=== PATIENT | male | born 1995 ===

== ENCOUNTER 2020-11-28 14:38 | Inpatient (IN) | payer BC ==
[~2020-11-28] VITALS: Ht 170.2 cm; Wt 106.6 kg
[2020-12-01] MEDS ORDERED: APIX5TAB PO (16:52)
[2020-12-01] MEDS ORDERED: TRAZ-227 PO (16:52)
[2020-12-01] MEDS ORDERED: SERT-414 PO (16:52)
[2020-12-01] MEDS ORDERED: RT-ALBUINH INH (16:52)
[2020-12-01] MEDS ORDERED: MTP25TSR PO (16:52)
[2020-12-01] MEDS ORDERED: DIAZ10TA3 PO (16:52)
[2020-12-01 16:54] VITALS: BP 124/80
[2020-12-01] MEDS ORDERED: guaiFENesin/CODEINE (ROBITUSSIN AC) 10ML UDC PO PRN (17:15)
[2020-12-01] MEDS ORDERED: LOPERAMIDE 2 MG (IMODIUM) TABLET PO PRN (17:15)
[2020-12-01] MEDS ORDERED: LACTULOSE SYRUP 10GM/15ML (ENULOSE) 30ML UDC PO PRN (17:15)
[2020-12-01] MEDS ORDERED: ALPRAZolam 0.25 MG (XANAX) TAB PO PRN (17:15)
[2020-12-01] MEDS ORDERED: CALCIUM CARBONATE 500 MG (TUMS) TAB.CHEW PO PRN (17:15)
[2020-12-01] MEDS ORDERED: ACETAMINOPHEN 500 MG TAB (TYLENOL) PO PRN (17:15)
[2020-12-01] MEDS ORDERED: ONDANSETRON 4 MG (ZOFRAN) ORAL DISSOLVE TAB PO PRN (17:15)
[2020-12-01] MEDS ORDERED: diphenhydrAMINE 25 MG TAB (BENADRYL) PO PRN (17:15)
[2020-12-01] MEDS ORDERED: BISACODYL 10 MG SUPP (DULCOLAX) PR PRN (17:15)
[2020-12-01] MEDS ORDERED: FLEET ENEMA ADULT 1 EA BTL PR PRN (17:15)
[2020-12-01] MEDS ORDERED: NALOXONE 0.4 MG/ML 1 ML (NARCAN) VIAL IV PRN (17:15)
[2020-12-01] MEDS ORDERED: MELATONIN 3 MG TABLET PO PRN (17:15)
[2020-12-01] MEDS ORDERED: DOCUSATE SODIUM 100 MG (COLACE) CAP PO PRN (17:15)
[2020-12-01] MEDS ORDERED: ACETAMINOPHEN 325 MG TABLET PO PRN (17:30)
[2020-12-01] MEDS ORDERED: RT-ALBUTEROL SULF 2.5 MG/3 ML PRE-MIX VIAL INH PRN (18:00)
--- NOTE | 2020-12-01 18:03 | PM&R Post Admission Assessment ---
PM&R HP Date of Visit: Dec 01, 2020 Time of Visit: 18:15 History of Present Illness Chief complaint: Post Covid 19 pneumonia syndrome with severe debility and hypoxia History of present illness: This is a 25-year-old male who is from [place] who transferred to inpatient rehab to recover and ultimately return to independent living and prior level of functioning following a long hospital stay after ada COVID-19 pneumonia with subsequent admission to [place] but then transferred to [facility] in [place] for ECMO. It was a successful treatment he did require a tracheotomy. He is now here for aggressive therapy in order to regain function and return home with his fiance who is with their fifth child. She is due in 2 weeks. He does have a right lower extremity DVT he is on oral anticoagulation. He works for [employer] for the last 1 year. CC: Post ECMO Rehab following COVID-19 Sepsis Pneumonia HPI: 25yo M presents to [facility] for post ECMO rehab following COVID-19 sepsis pneumonia with pt/family goal of returning to previous state. Prior to hospitalization the patient was living with his in [place], [place]. He was reportedly independent with ADLs and functionally mobile without an AD. 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 On 10/03/20, he reports a loss of taste, smell, fever, and chills for over 24 hours before visiting ER [facility]. There he had a positive covid test and he was placed on ZITHROMAX (Azithromycin) and Decadron (Dexamethasone). 7 Days later, on 10/09/20, he reports cough, congestion, SOB, headache, fatigue, and intermittent fever. 88% O2 was then maintained at 94-95% on 3L NC. Chest xray showed multilobular pneumonia and was given Rocephin (ceftriaxone). ER physicians recommended admission, but patient decided to go home instead and was discharged on Omnicef (cefdinir), Ivermectin, and supplemental home oxygen. On 10/10, he was admitted to [facility] for 7 days and was intubated and right PNX placed chest tube. 10/17, Pt sent to [facility] for ECMO, but due to insufficient resources was transferred to [facility] ECMO just [address] De La Torre. Pt states after being in a coma for about a month, they now present to the [facility] rehab unit for recovery. 12/01, pt reports cough, weight gain, blurry vision, and chest numbness. Denies any fever, vomiting, diarrhea, chest pain, wheezes, or SOB. Pt pending further evaluation tomorrow morning. 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 currently FH: Mom (Glaucoma); Father (none); Sisters (None) ROS: Constitutional: No chills, No dizziness, No fever; weight gain (Since waking up), weight loss (50lbs during 1 month coma) EENTM: vision loss; No ear pain, No eye pain Respiratory: cough; No hemoptysis; phlegm; No short of breath, No wheezing Cardiovascular: No chest pain, No edema, No syncope Gastrointestinal: No abdominal pain, No diarrhea, No hematemesis, No loss of appetite, No nausea, No vomiting Genitourinary: No dysuria, No frequency, No incontinence Musculoskeletal: No back pain, No muscle pain, No neck pain Skin: No change in color, No lesions, No rash Psychiatric/Neurological: Denies Headache; Numbness (Chest); Denies Tingling Exam: General Appearance: No Apparent Distress, WD/WN; No Obese Eyes: Bilateral Eye Normal Inspection, Bilateral Eye PERRL, Bilateral Eye EOMI HEENT: PERRL/EOMI, Pharynx Normal, Moist Mucous Membranes; No Photophobia, No Scleral Icterus (L), No Scleral Icterus (R) Neck: Non Tender, Supple Respiratory: Chest Non Tender, No Accessory Muscle Use, No Respiratory Distress, Decreased Breath Sounds (Bilateral lower lobes) Cardiovascular: Tachycardia Back: Normal Inspection, No CVA Tenderness, No Vertebral Tenderness Extremity: Normal Capillary Refill, Normal Inspection, Normal Range of Motion, Non Tender, No Calf Tenderness, No Pedal Edema Neurologic/Psychiatric: Alert, Oriented x3, No Motor/Sensory Deficits, Normal Mood/Affect, manager general II-XII Norm as Tested Skin: Normal Color, Warm/Dry Labs/Imaging: Vital Signs 12/01/20 12/01/20 16:54 19:08 Temp 37.0 Pulse 121 Resp 20 B/P (MAP) 124/80 (95) Pulse Ox 95 O2 Delivery Trach Collar O2 Flow Rate 6.00 FiO2 28 Assessment: Status Post ECMO Critical Illness Myopathy Anemia Anxiety COVID-19 (10/04/2020) -ARDS -Sepsis -Pneumonia DVT Hypoxia Insomnia Leukocytosis Tachycardia Thrombocytopenia Morbid Obesity GERD (previous decadron use, Famotidine ppx used) Plan: ABG for Hypoxia CBC/CMP for previous anemia, leukocytosis, and thrombocytopenia Repeat Chest X-ray for possible residual pneumonia Melatonin 5mg at bedtime for Insomnia Sertraline for Anxiety Cardiology consult for tachycardia -Metoprolol Coag studies check for D-dimer levels due to previous DVT -Eliquis DVT ppx -Bilateral Venous Doppler Study Possible nutrition consult due to rapid weight gain NAN WASSERMAN DO 12/02/20 0603: Supervisory-Addendum Brief Verification & Attestation Participated in pt care: history, MDM, physical Personally performed: exam, history, MDM, supervision of care Care discussed with: Medical Student Procedures: n/a Results interpretation: Verified all documentation Verification and Attestation of Medical Student E/M Service A medical student performed and documented this service in my presence. I reviewed and verified all information documented by the medical student and made modifications to such information, when appropriate. I personally performed the physical exam and medical decision making. Nan Wasserman Dec 02, 2020,06:02 HUMBLE IGLESIAS Dec 01, 2020 20:47 NAN WASSERMAN DO Patient was admitted to the ARU during this COVID-19 emergency. The ARU is the best and most appropriate post-acute care setting for this patient at this current time. Patient meets IRF admission criteria, however will be unable to tolerate 3 hours of therapy/5 days per week. This patients individualized intensive rehabilitation plan is to receive 2 hours of therapy per day, by receiving 1 hour of PT and 1 hour of OT 5 out of 7 days per the patients week. As an interdisciplinary team, we will discuss this patients ability to tolerate an increase in the intensity of therapy to be provided throughout the patients stay Past Xiohiyb-[id number]-Venzdj Hx Past Med/Social Hx: Reviewed Nursing Past Med/Soc Hx, Reviewed and Corrections made Patient Social History Marrital Status: cohabiting Employed/Student: employed Alcohol Use: Denies Use Smoking Status: Never a Smoker Past Medical History Tracheotomy Respiratory: Pneumonia COVID-19 pneumonia with ECMO Cardiac: Deep Vein Thrombosis (Right lower extremity) Psychosocial: Anxiety PM&R Allergy/Meds/Data Review Allergies Coded Allergies: No Known Drug Allergies (Unverified , 12/01/20) Home Medications Scheduled Apixaban (Eliquis), 5 MG PO BID, (Reported) Diazepam (Diazepam), 10 MG PO HS, (Reported) Metoprolol Succinate (Metoprolol Succinate), 25 MG PO DAILY, (Reported) Sertraline HCl (Sertraline HCl), 100 MG PO DAILY, (Reported) Trazodone HCl (Trazodone HCl), 100 MG PO HS, (Reported) Scheduled PRN Albuterol Sulfate (Ventolin Hfa), 2 PUFF INH Q4H PRN for WHEEZING, (Reported) Current Medications Current Medications Reviewed Review of Systems Constitutional: see HPI, malaise, weakness EENTM: no symptoms reported Respiratory: dyspnea on exertion Cardiovascular: no symptoms reported Gastrointestinal: no symptoms reported Genitourinary: no symptoms reported Musculoskeletal: no symptoms reported Skin: no symptoms reported Psychiatric/Neurological: Anxiety, Depressed All Other Systems Reviewed Negative Unless Noted: Yes Physical Exam Physical Exam Vital Signs Vital Signs - First Documented 12/01/20 12/01/20 16:54 17:30 Temp 37.0 Pulse 121 Resp 20 B/P (MAP) 124/80 (95) Pulse Ox 96 O2 Delivery Trach Collar O2 Flow Rate 6.00 28.00 FiO2 28 Capillary Refill : Height, Weight, BMI Height: '" Weight: lbs. oz. kg; 35.00 BMI Method: General Appearance: No Apparent Distress, WD/WN, Anxious, Chronically ill, Obese Eyes: Bilateral Eye Normal Inspection, Bilateral Eye PERRL HEENT: PERRL/EOMI, Normal ENT Inspection, Pharynx Normal Neck: Full Range of Motion, Normal Inspection, Non Tender, Supple, Carotid Bruit Respiratory: Chest Non Tender, Lungs Clear, Normal Breath Sounds, No Accessory Muscle Use, No Respiratory Distress Cardiovascular: Regular Rate, Rhythm, No Edema, No Gallop, No JVD, No Murmur, Normal Peripheral Pulses Gastrointestinal: Normal Bowel Sounds, No Organomegaly, No Pulsatile Mass, Non Tender, Soft Back: Normal Inspection, No CVA Tenderness, No Vertebral Tenderness Extremity: Normal Capillary Refill, Normal Inspection, Normal Range of Motion, Non Tender, No Calf Tenderness, No Pedal Edema Neurologic/Psychiatric: Alert, Oriented x3, No Motor/Sensory Deficits, Normal Mood/Affect, Motor Weakness (Generalized) Skin: Normal Color, Warm/Dry Lymphatic: No Adenopathy PM&R Medical Assessment & Plan REHAB/MEDICAL ASSESSMENT AND PLAN: REHAB IMPAIRMENT GROUP: COVID-19 pneumonia ETIOLOGIC DIAGNOSIS: COVID-19 pneumonia The comorbidities that impact the patients function and/or functional outcome by: Severe hypoxia, trach in place, severe debility with muscle weakness REHAB PLAN: The patient is being admitted to our comprehensive inpatient rehabilitation facility and can tolerate the intensity of service consisting of at least: 180 minutes of therapy a day, 5 out of 7 days a week Rehab treatment will consist of: Intensive PT and OT will be focused on ambulatory skills along with assistive devices in addition to increasing independence in ADLs to return to independent living The patient/family has a good understanding of our discharge process and will benefit from an interdisciplinary inpatient rehabilitation program. The patient has potential to make improvement and is in need of at least two of the following multidisciplinary therapies including but not limited to physical, occupational, speech, and prosthetics and orthotics. Additionally the patient will need services from respiratory, nutritional services, wound care, psychology, etc. (Customize this to each patient). Given the patients complex condition and risk of further medical complications, rehabilitation services cannot be safely or effectively provided at a lower level of care such as a care home facility. BARRIERS TO DISCHARGE: Severe debility with hypoxia with exertion ESTIMATED LOS: 21 days DISPOSITION: Home RELEVANT CHANGES SINCE PREADMISSION SCREENING: I have compared the patients medical and functional status at the time of the preadmission screening and there are: No changes PROGNOSIS: Good REHABILITATION GOALS: 1. Intensive PT and OT will be focused on ambulatory skills along with assistive devices in addition to increasing independence in ADLs to return to independent living All the above goals were reviewed with the patient and he/she is in agreement. By signing this document, I acknowledge that I have personally performed a full physical examination on this patient within 24 hours of [facility] and have determined the patient to be able to tolerate the above course of treatment at an intensive level for a reasonable period of time. I will be completing a detailed individualized Plan of Care for this patient by day #4 of the patients stay based upon the Preadmission Screen, the Post-Admission Evaluation, and the therapy evaluations. Admission Dx/Comorbidities: (1) COVID-19 ICD Codes: U07.1 - COVID-19 Assessment/Plan Assessment and Plan Assess & Plan/Chief Complaint Assessment: COVID-19 pneumonia syndrome with severe debility and muscle weakness Tracheostomy in place Obesity Anxiety Severe hypoxia Plan: Aggressive PT and OT Oxygen supplementation Trach care Monitor closely NAN WASSERMAN DO Dec 01, 2020 18:03
[2020-12-01] MEDS: DOCUSATE SODIUM 100 MG (COLACE) CAP PO SCH (19:31)
[2020-12-01] MEDS: polyethylene glycoL POWDER 17 GM (MIRALAX) PACK PO SCH (19:31)
[2020-12-01] MEDS: SENNA W/DOCUSATE (SENOKOT S) TABLET PO SCH (19:32)
[2020-12-01 20:00] VITALS: BP 127/81
--- NOTE | 2020-12-01 20:47 | Progress Note ---
[facility] 12/01/202046: Progress Note CC: Post ECMO Rehab following COVID-19 Sepsis Pneumonia HPI: 25yo M presents to [facility] for post ECMO rehab following COVID-19 sepsis pneumonia with pt/family goal of returning to previous state. Prior to hospitalization the patient was living with his in [place], [place]. He was reportedly independent with ADLs and functionally mobile without an AD. 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 On 10/03/20, he reports a loss of taste, smell, fever, and chills for over 24 hours before visiting ER [facility]. There he had a positive covid test and he was placed on ZITHROMAX (Azithromycin) and Decadron (Dexamethasone). 7 Days later, on 10/09/20, he reports cough, congestion, SOB, headache, fatigue, and intermittent fever. 88% O2 was then maintained at 94-95% on 3L NC. Chest xray showed multilobular pneumonia and was given Rocephin (ceftriaxone). ER physicians recommended admission, but patient decided to go home instead and was discharged on Omnicef (cefdinir), Ivermectin, and supplemental home oxygen. On 10/10, he was admitted to [facility] for 7 days and was intubated and right PNX placed chest tube. 10/17, Pt sent to [facility] for ECMO, but due to insufficient resources was transferred to [facility] ECMO just [address] De La Torre. Pt states after being in a coma for about a month, they now present to the [facility] rehab unit for recovery. 12/01, pt reports cough, weight gain, blurry vision, and chest numbness. Denies any fever, vomiting, diarrhea, chest pain, wheezes, or SOB. Pt pending further evaluation tomorrow morning. 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 with currently FH: Mom (Glaucoma); Father (none); Sisters (None) ROS: Constitutional: No chills, No dizziness, No fever; weight gain (Since waking u p), weight loss (50lbs during 1 month coma) EENTM: vision loss; No ear pain, No eye pain Respiratory: cough; No hemoptysis; phlegm; No short of breath, No wheezing Cardiovascular: No chest pain, No edema, No syncope Gastrointestinal: No abdominal pain, No diarrhea, No hematemesis, No loss of appetite, No nausea, No vomiting Genitourinary: No dysuria, No frequency, No incontinence Musculoskeletal: No back pain, No muscle pain, No neck pain Skin: No change in color, No lesions, No rash Psychiatric/Neurological: Denies Headache; Numbness (Chest); Denies Tingling Exam: General Appearance: No Apparent Distress, WD/WN; No Obese Eyes: Bilateral Eye Normal Inspection, Bilateral Eye PERRL, Bilateral Eye EOMI HEENT: PERRL/EOMI, Pharynx Normal, Moist Mucous Membranes; No Photophobia, No Scleral Icterus (L), No Scleral Icterus (R) Neck: Non Tender, Supple Respiratory: Chest Non Tender, No Accessory Muscle Use, No Respiratory Distress, Decreased Breath Sounds (Bilateral lower lobes) Cardiovascular: Tachycardia Back: Normal Inspection, No CVA Tenderness, No Vertebral Tenderness Extremity: Normal Capillary Refill, Normal Inspection, Normal Range of Motion, Non Tender, No Calf Tenderness, No Pedal Edema Neurologic/Psychiatric: Alert, Oriented x3, No Motor/Sensory Deficits, Normal Mood/Affect, extension course counselor II-XII Norm as Tested Skin: Normal Color, Warm/Dry Labs/Imaging: Vital Signs 12/01/20 12/01/20 16:54 19:08 Temp 37.0 Pulse 121 Resp 20 B/P (MAP) 124/80 (95) Pulse Ox 95 O2 Delivery Trach Collar O2 Flow Rate 6.00 FiO2 28 Assessment: Status Post ECMO Critical Illness Myopathy Anemia Anxiety COVID-19 (10/04/2020) -ARDS -Sepsis -Pneumonia DVT Hypoxia Insomnia Leukocytosis Tachycardia Thrombocytopenia Morbid Obesity GERD (previous decadron use, Famotidine ppx used) Plan: ABG for Hypoxia CBC/CMP for previous anemia, leukocytosis, and thrombocytopenia Repeat Chest X-ray for possible residual pneumonia Melatonin 5mg at bedtime for Insomnia Sertraline for Anxiety Cardiology consult for tachycardia -Metoprolol Coag studies check for D-dimer levels due to previous DVT -Eliquis DVT ppx -Bilateral Venous Doppler Study Possible nutrition consult due to rapid weight gain NAN WASSERMAN DO 12/02/20 0603: Supervisory-Addendum Brief Verification & Attestation Participated in pt care: history, MDM, physical Personally performed: exam, history, MDM, supervision of care Care discussed with: Medical Student Procedures: n/a Results interpretation: Verified all documentation Verification and Attestation of Medical Student E/M Service A medical student performed and documented this service in my presence. I reviewed and verified all information documented by the medical student and made modifications to such information, when appropriate. I personally performed the physical exam and medical decision making. Nan Wasserman, Dec 02, 2020,06:02 HUMBLE IGLESIAS Dec 01, 2020 20:47 NAN WASSERMAN DO Dec 02, 2020 06:03
[2020-12-01] MEDS ORDERED: NON-FORMULARY MEDICATION 1 EA EA (Diazepam 10 MG) PO SCH (21:00)
[2020-12-01] MEDS: DIAZEPAM 5 MG (VALIUM) TABLET PO SCH (21:03)
[2020-12-01] MEDS: traZODone 100 MG (DESYREL) TAB PO SCH (21:03)
[2020-12-01] MEDS: APIXABAN 5 MG (ELIQUIS) TABLET PO SCH (21:03)
[2020-12-01 21:24] VITALS: BP 127/81
[2020-12-02 06:36] LABS: BASOPHILS % (AUTO) 0 % (0-10); EOSINOPHILS # (AUTO) 0.1 10^3/uL (0.0-0.3); EOSINOPHILS % (AUTO) 1 % (0-10); HEMATOCRIT 32 % (40-54); LYMPHOCYTES # (AUTO) 2.1 10^3/uL (1.0-4.0); LYMPHOCYTES % (AUTO) 25 % (12-44); MEAN CORPUSCULAR HEMOGLOBIN 30 pg (25-34); MEAN CORPUSCULAR HGB CONC 31 g/dL (32-36); MEAN CORPUSCULAR VOLUME 97 fL (80-99); MEAN PLATELET VOLUME 10.3 fL (9.0-12.2); MONOCYTES # (AUTO) 0.5 10^3/uL (0.0-1.0); MONOCYTES % (AUTO) 6 % (0-12); NEUTROPHILS # (AUTO) 5.6 10^3/uL (1.8-7.8); NEUTROPHILS % (AUTO) 67 % (42-75); PLATELET COUNT 410 10^3/uL (130-400); WHITE BLOOD COUNT 8.4 10^3/uL (4.3-11.0)
[2020-12-02 06:53] LABS: ALBUMIN 3.7 GM/DL (3.2-4.5)
[2020-12-02 06:55] LABS: CALCIUM 9.3 MG/DL (8.5-10.1)
[2020-12-02 06:56] LABS: TOTAL PROTEIN 6.4 GM/DL (6.4-8.2)
[2020-12-02 06:58] LABS: BILIRUBIN,TOTAL 0.4 MG/DL (0.1-1.0)
[2020-12-02 06:59] LABS: CREATININE SERUM 0.68 MG/DL (0.60-1.30)
[2020-12-02 08:00] VITALS: BP 139/90
--- NOTE | 2020-12-02 08:46 | Physical Therapy Evaluation ---
PT Evaluation-General Medical Diagnosis Admission Date Dec 01, 2020 at 16:40 Medical Diagnosis: Critical Illness Myopathy Onset Date: Oct 09, 2020 Therapy Diagnosis Therapy Diagnosis: Gait deficit, strength deficit Precautions Precautions/Isolations: Fall Prevention, Standard Precautions Referral Physician: Dr. Calderon Reason for Referral: Evaluation/Treatment Medical History Current History Patient post COVID with significant decline in function and strength, tolerance to activity. Reviewed History: Yes Social History Home: Single Level Current Living Status: Significant Other Entry Into Home: Stairs With Railing PT Steps Into Home: 4 PT Steps Inside Home: 0 Prior Prior Level of Function SCALE: Activities may be completed with or without assistive devices. 4-Klwgvzowft-ifqgirk completes the activity by him/herself with no assistance from a helper. 5-Set-up or Clean-up Assistance-helper sets up or cleans up; patient completes activity. [place] assists only prior to or following the activity. 4-Supervision or Touching Assistance-helper provides verbal cues and/or touching/steadying and/or contact guard assistance as patient completes activity. Assistance may be provided throughout the activity or intermittently. 3-Partial/Moderate Assistance-helper does LESS THAN HALF the effort. [place] lifts, holds or supports trunk or limbs, but provides less than half the effort. 2-Substantial/Maximal Assistance-helper does MORE THAN HALF the effort. [place] lifts or holds trunk or limbs and provides more than half the effort. 6-Iouenahpu-jkkklo does ALL the effort. Patient does none of the effort to complete the activity. Or, the assistance of 2 or more helpers is required for the patient to complete the activity. If activity was not attempted, code reason: 7-Patient Refused. 9-Not Applicable-not attempted and the patient did not perform the activity before the current illness, exacerbation or injury. 10-Not Attempted due to Environmental Limitations-(lack of equipment, weather restraints, etc.). 88-Not Attempted due to Medical Conditions or Safety Concerns. Bed Mobility: 6 Transfers (B,C,W/C): 6 Gait: 6 Stairs: 6 Wheelchair Mobility: 6 Indoor Mobility (Ambulation): Independent Stairs: Independent Prior Devices Use: None PT Evaluation-Current Subjective Patient sitting upright in bed upon PT arrival, agreeable to treatment. Patient rates current pain at 2/10 in his neck due to soreness. Reports he has been in a coma for a month and a half and feels like his muscles are very weak and he gets tired easily. Reports he has some anxiety as well and that makes walking and moving around more difficult. Reports he ambulated one time at [facility], "with a chair that had a seat behind it" ~ 60 feet. Patients goal is to return home with his Fiance as she is . Patient is highly motivated. Objective Patient Orientation: Person, Place, Time, Situation Attachments: Oxygen Trach mask with 4 L O2 at 28% Integumentary/Posture Integumentary No noticeable skin tears or wounds. Please see nurses notes for further details Sensory Vision: Functional Sensation Right Lower Extremit: Intact Sensation Left Lower Extremity: Intact Transfers Roll Left & Right (QC): 5 Sit to Lying (QC): 5 Lying to Sitting/Side of Bed(Q: 5 Sit to Stand (QC): 4 Chair/Tmh-bs-Pyqgq Xfer(QC): 4 Toilet Transfer (QC): 4 Car Transfer (QC): 4 Gait Does the Patient Walk?: Yes Mode of Locomotion: Walk Anticipated Mode of Locomotion: Walk Walk 10 feet (QC): 4 Walk 50 ft with 2 Turns(QC): 4 Walk 150 ft (QC): 1 Walking 10ft/uneven surface-QC: 4 Distance: 40 feet x 2 Gait Assistive Device: FWW Comments/Gait Description Patient ambulates with narrow ARTEMIO, shortened stride length bilaterally and tends to keep his posture very stiff. Demonstrates little to no trunk movement. Wheelchair Training Does the Pt Use a Wheelchair?: No Distance: N/A Wheel 50 ft with 2 turns (QC): 9 Wheel 150 ft (QC): 9 Type of Wheelchair: N/A Stairs #of Steps: 0 1 Step (curb) (QC): 88 4 Steps (QC): 88 12 Steps (QC): 8 Balance Sitting Static: Normal Sitting Dynamic: Good Standing Static: Fair Standing Dynamic: Fair Picking up an Object (QC): 4 Treatment Therapeutic exercise with monitoring of O2 without trach mask, Gait training, Functional activity Assessment/Needs Patient tolerated treatment well. Demonstrates significant strength deficit in bilateral LEs and core. Patient performs all observed bed mobility with SBA for trach and tubing. Fatigues quickly throughout treatment, O2 monitored continuously as O2 sats decline with activity and Heart rate increases to 138 bpm during therapeutic exercise despite frequent rest breaks. Rehab Potential: Good Equipment Needs FWW rental for short term use PT Short Term Goals Short Term Goals Time Frame: Dec 09, 2020 Chair/lie-pc-eogut transfer: 5 Toilet transfer: 5 Car transfer: 5 Walk 10 feet: 5 Walk 50 feet with two turns: 5 Walk 150 feet: 5 Walking 10ft on uneven surface: 5 1 step (curb): 5 4 steps: 5 12 steps: 5 Picking up objects: 5 Does pt use a wc or scooter: No Wheel 50ft w/2 turns: 9 Wheel 150 feet: 9 Type: N/A PT Group Home Goals Group Home Goals PT Group Home Goals Time Frame: Dec 23, 2020 Roll Left & Right (QC): 6 Sit to Lying (QC): 6 Lying-Sitting on Side/Bed(QC): 6 Sit to Stand (QC): 6 Chair/Lcg-vo-Udpxk Xfer(QC): 6 Toilet Transfer (QC): 6 Car Transfer (QC): 6 Does the Patient Walk: Yes Walk 10 feet (QC): 6 Walk 50ft with 2 Turns (QC): 6 Walk 150 ft (QC): 6 Walking 10ft on Uneven Surface: 6 1 Step (curb) (QC): 6 4 Steps (QC): 6 12 Steps (QC): 6 Picking up an Object (QC): 6 Does the Pt use WC or Scooter?: No Wheel 50 feet with 2 turns (QC: 9 Type: N/A Wheel 150 feet: 9 Type: N/A PT Plan Problem List Problem List: Activity Tolerance, Functional Strength, Safety, Balance, Gait, Transfer Treatment/Plan Treatment Plan: Continue Plan of Care Treatment Plan: Bed Mobility, Concurrent Therapy, Education, Functional Activity Trudy, Functional Strength, Group Therapy, Gait, Safety, Therapeutic Exercise, Transfers Treatment Duration: Jan 15, 2021 Frequency: At least 5 of 7 days/Wk (IRF) Estimated Hrs Per Day: 1.5 hours per day Patient and/or Family Agrees t: Yes Safety Risks/Education Patient Education: Gait Training, Reviewed Precautions, Safety Issues Teaching Recipient: Patient Teaching Methods: Demonstration, Discussion Response to Teaching: Verbalize Understanding, Return Demonstration Time/GCodes Time In: 0800 Time Out: 900 Total Billed Treatment Time: 60 Total Billed Treatment Visit, Jose Christine Ex, FA TOCCI, JOHN A PT Dec 02, 2020 08:46
[2020-12-02] MEDS: DOCUSATE SODIUM 100 MG (COLACE) CAP PO SCH ×2 (09:14→20:04)
[2020-12-02] MEDS: SENNA W/DOCUSATE (SENOKOT S) TABLET PO SCH ×2 (09:14→20:05)
[2020-12-02] MEDS: polyethylene glycoL POWDER 17 GM (MIRALAX) PACK PO SCH ×2 (09:14→20:05)
[2020-12-02] MEDS: APIXABAN 5 MG (ELIQUIS) TABLET PO SCH ×2 (09:23→22:46)
[2020-12-02] MEDS: SERTRALINE 100 MG (ZOLOFT) TAB PO SCH (09:23)
--- NOTE | 2020-12-02 09:55 | PM&R Progress Note ---
Subjective HPI/CC On Admission Date Seen by Provider: Dec 02, 2020 Time Seen by Provider: 10:00 Subjective/Events-last exam 12/02/2020: Pt doing really well Taking a shower HR remains tachycardic so Metoprolol 12.5 BID will be started Denies any other new issues Fianc at the bedside Review of Systems General: Fatigue, Malaise Pulmonary: Dyspnea Objective Exam Vital Signs Vital Signs Date Time Temp Pulse Resp B/P (MAP) Pulse Ox O2 Delivery O2 Flow Rate FiO2 12/02/20 21:13 96 Trach Collar 6.00 28 12/02/20 20:00 36.8 124 20 119/76 (90) Capillary Refill : General Appearance: No Apparent Distress, WD/WN, Anxious, Chronically ill, Obese HEENT: PERRL/EOMI, Normal ENT Inspection, Pharynx Normal Neck: Full Range of Motion, Normal Inspection, Non Tender, Supple, Carotid Bruit Respiratory: Chest Non Tender, Lungs Clear, Normal Breath Sounds, No Accessory Muscle Use, No Respiratory Distress Cardiovascular: Regular Rate, Rhythm, No Edema, No Gallop, No JVD, No Murmur, Normal Peripheral Pulses Gastrointestinal: Normal Bowel Sounds, No Organomegaly, No Pulsatile Mass, Non Tender, Soft Back: Normal Inspection, No CVA Tenderness, No Vertebral Tenderness Extremity: Normal Capillary Refill, Normal Inspection, Normal Range of Motion, Non Tender, No Calf Tenderness, No Pedal Edema Neurologic/Psychiatric: Alert, Oriented x3, No Motor/Sensory Deficits, Normal Mood/Affect, Motor Weakness (Generalized) Skin: Normal Color, Warm/Dry Lymphatic: No Adenopathy Results/Procedures Lab Laboratory Tests 12/02/20 06:25 Patient resulted labs reviewed. FIM Transfers Therapy Code Descriptions/Definitions Functional [place] Measure: 0=Not Assessed/NA 4=Minimal Assistance 1=Total Assistance 5=Supervision or Setup 2=Maximal Assistance 6=Modified [place] 3=Moderate Assistance 7=Complete IndependenceSCALE: Activities may be completed with or without assistive devices. 9-Cjrkrenjeu-cbwtbyq completes the activity by him/herself with no assistance from a helper. 5-Set-up or Clean-up Assistance-helper sets up or cleans up; patient completes activity. [place] assists only prior to or following the activity. 4-Supervision or Touching Assistance-helper provides verbal cues and/or touching/steadying and/or contact guard assistance as patient completes activity. Assistance may be provided throughout the activity or intermittently. 3-Partial/Moderate Assistance-helper does LESS THAN HALF the effort. [place] lifts, holds or supports trunk or limbs, but provides less than half the effort. 2-Substantial/Maximal Assistance-helper does MORE THAN HALF the effort. [place] lifts or holds trunk or limbs and provides more than half the effort. 9-Bfrqbnvrh-upvoqj does ALL the effort. Patient does none of the effort to complete the activity. Or, the assistance of 2 or more helpers is required for the patient to complete the activity. If activity was not attempted, code reason: 7-Patient Refused. 9-Not Applicable-not attempted and the patient did not perform the activity before the current illness, exacerbation or injury. 10-Not Attempted due to Environmental Limitations-(lack of equipment, weather restraints, etc.). 88-Not Attempted due to Medical Conditions or Safety Concerns. Roll Left to Right (QC): 5 Sit to Lying (QC): 5 Sit to Stand (QC): 4 Chair/Suz-io-Tonqn Xfer(QC): 4 Car Transfer (QC): 4 Gait Training Does the Patient Walk?: Yes Walk 10 feet (QC): 4 Walk 50 ft with 2 Turns(QC): 4 Walk 150 ft (QC): 1 Walking 10ft/uneven surface-QC: 4 Gait Assistive Device: FWW Wheelchair Training Does the Pt Use a Wheelchair?: No Distance: N/A Wheel 50 ft with 2 turns (QC): 9 Wheel 150 ft (QC): 9 Type of Wheelchair: N/A Stair Training #of Steps: 0 1 Step (curb) (QC): 88 4 Steps (QC): 88 12 Steps (QC): 8 Balance Picking up an Object (QC): 4 Assessment/Plan Assessment and Plan Assess & Plan/Chief Complaint Assessment: COVID-19 pneumonia syndrome with severe debility and muscle weakness Tracheostomy in place Obesity Anxiety Severe hypoxia Anemia hemoglobin of 10 Plan: Aggressive PT and OT Oxygen supplementation Trach care Monitor closely 12/02/2020: Continue supportive care Oxygen wean Improved status (1) COVID-19 MYRNA WASSERMAN DO Dec 02, 2020 09:55
[2020-12-02 11:07] VITALS: BP 119/76
[2020-12-02] MEDS: meTOprolol TARTRATE 25 MG (LOPRESSOR) TABLET PO SCH ×2 (11:07→22:46)
--- NOTE | 2020-12-02 11:11 | Progress Note ---
HUMBLE IGLESIAS 12/02/20 1111: Progress Note 25yo M is on his 2nd day stay in rehab s/p ECMO due to covid sepsis pna. Pt reports some neck pain and bloating. Denies chest pain, fever, vomiting, cough, or diarrhea. PT/OT reports that pt was able to walk from his bed to the door and back 2x. Plan to continue PT/OT for approximately 2 weeks and increase me toprolol to control tachycardia. NAN WASSERMAN DO 12/03/20 0600: Supervisory-Addendum Brief Verification & Attestation Participated in pt care: history, MDM, physical Personally performed: exam, history, MDM, supervision of care Care discussed with: Medical Student Procedures: n/a Results interpretation: Verified all documentation Verification and Attestation of Medical Student E/M Service A medical student performed and documented this service in my presence. I r eviewed and verified all information documented by the medical student and made modifications to such information, when appropriate. I personally performed the physical exam and medical decision making. Nan Wasserman, Dec 03, 2020,06:00 HUMBLE IGLESIAS Dec 02, 2020 11:11 NAN WASSERMAN DO Dec 03, 2020 06:00
--- NOTE | 2020-12-02 11:36 | Occupational Therapy Eval ---
OT Evaluation-General/PLF Medical Diagnosis Admission Date Dec 01, 2020 at 16:40 Medical Diagnosis: Critical Illness Myopathy Onset Date: Oct 09, 2020 Therapy Diagnosis Therapy Diagnosis: decreased ADL Status Precautions Precautions/Isolations: Fall Prevention, Standard Precautions Referral Physician: Dr. Calderon Referral Reason: Evaluation/Treatment Medical History Additional Medical History achilles tendon repair, anxiety Current History 10/04/20 diagnosed positive for COVID 19. 10/10 admit to [facility], intubated, and R PNX placed chest tube. 10/[address] [facility] for ECMO, transferred to [facility] ECMO 16 hours later due to insufficient resources. 12/[address] [facility] for continued medication management and skilled th erapies. Social History Home: Single Level Current Living Status: Significant Other Entry Into Home: Stairs With Railing Steps Into Home: 4 Steps Inside Home: 0 ADL-Prior Level of Function SCALE: Activities may be completed with or without assistive devices. 7-Cpxdtybmsl-athcbjk completes the activity by him/herself with no assistance from a helper. 5-Set-up or Clean-up Assistance-helper sets up or cleans up; patient completes activity. [place] assists only prior to or following the activity. 4-Supervision or Touching Assistance-helper provides verbal cues and/or touching/steadying and/or contact guard assistance as patient completes activity. Assistance may be provided throughout the activity or intermittently. 3-Partial/Moderate Assistance-helper does LESS THAN HALF the effort. [place] lifts, holds or supports trunk or limbs, but provides less than half the effort. 2-Substantial/Maximal Assistance-helper does MORE THAN HALF the effort. [place] lifts or holds trunk or limbs and provides more than half the effort. 3-Wqdcymcsa-mpxxtx does ALL the effort. Patient does none of the effort to complete the activity. Or, the assistance of 2 or more helpers is required for the patient to complete the activity. If activity was not attempted, code reason: 7-Patient Refused. 9-Not Applicable-not attempted and the patient did not perform the activity b efore the current illness, exacerbation or injury. 10-Not Attempted due to Environmental Limitations-(lack of equipment, weather restraints, etc.). 88-Not Attempted due to Medical Conditions or Safety Concerns. ADL PLOF Comments Pt IND with ADLs and functional mobility at PLOF, no AD/AE. Self Care: Independent Functional Cognition: Independent DME/Equipment: Tub/Shower Occupation: works FT at [employer] Self: Yes OT Current Status Subjective Pt up in chair, agreeable to OT tx. Pt's S.O. present throughout tx. Mental Status/Objective Patient Orientation: Person, Place, Time, Situation Attachments: Oxygen (trach collar) Current Upper Extremity ROM WFL Upper Extremity Coordination WFL Upper Extremity Strength grossly 3+/5 ADL-Treatment Eating (QC): 5 (per clincial judgment) Oral Hygiene (QC): 4 (per clincial judgment, SBA at sink) Shower/Bathe Self (QC): 4 (SBA, pt able to wash/dry all parts.) Upper Body Dressing (QC): 5 (set up assist, assist managing trach tubing) Lower Body Dressing (QC): 4 (SBA, pt able to don/doff shorts.) On/Off Footwear (QC): 4 (SBA, pt able to doff gripper socks, don socks and slip on shoes.) Toileting Hygiene (QC): 4 (SBA, pt able to manage clothing and perform hygiene.) Other Treatments Pt seated on BSC upon OT entry, agreeable to OT evaluation and tx. Pt completed toileting, then transferred to recliner, pt's S.O. present and cut pt's hair as OT set up shower for ADL tx. Pt transferred to portable O2 tank, then used FWW to perform functional mobility into bathroom and onto SC. OT covered trach prior to shower, then pt doffed clothes. Pt completed shower, his SO assisted with washing his hair and back, pt washed/dried all other parts. Pt transferred to chair with arm rests to get dressed, donning clothing with SBA. Pt used FWW to transfer to recliner, O2 switched from portable tank back to wall supply. Post tx, pt seated in recliner, call light in reach and all needs met. Education OT Patient Education: Correct positioning, Energy conservation, Modified ADL techniques, Progress toward Goal/Update tx plan, Purpose of tx/functional activities, Rehab process Teaching Recipient: Patient Teaching Methods: Discussion Response to Teaching: Verbalize Understanding OT Short Term Goals Short Term Goals Time Frame: Dec 10, 2020 Toileting hygiene: 5 Shower/bathe self: 5 Upper body dressin Lower body dressin Putting on/taking off footwear: 5 OT Shelter Goals Shelter Goals Time Frame: Dec 26, 2020 Eating (QC): 6 Oral Hygiene (QC): 6 Toileting Hygiene (QC): 6 Shower/Bathe Self (QC): 6 Upper Body Dressing (QC): 6 Lower Body Dressing (QC): 6 On/Off Footwear (QC): 6 Additional Goals: 1-Demonstrate ADL Tasks, 2-Verbalize Understanding, 3- ImproveStrength/Trudy 1=Demonstrate adherence to instructed precautions during ADL tasks. 2=Patient will verbalize/demonstrate understanding of assistive devices/sharon fications for ADL. 3=Patient will improve strength/tolerance for activity to enable patient to perform ADL's. OT Education/Plan Problem List/Assessment Assessment: Decreased Activ Tolerance, Decreased UE Strength, Impaired Funct Balance, Impaired I ADL's, Impaired Self-Care Skills Discharge Recommendations Plan/Recommendations: Continue POC Equpiment Recommendations-D/C: Extended Bath Bench (vs shower chair) Treatment Plan/Plan of Care Treatment,Training & Education: Yes Patient would benefit from OT for education, treatment and training to promote independence in ADL's, mobility, safety and/or upper extremity function for A DL's. Plan of Care: ADL Retraining, Functional Mobility, Group Exercise/Act as Ind, UE Funct Exercise/Act Treatment Duration: Dec 26, 2020 Frequency: Modified Program (IRF) Estimated Hrs Per Day: 1 hour per day Rehab Potential: Good Due to COVID-19 viral infection, the patient has deficits that warrant inpatient Acute Rehab. The patient will clearly benefit from intensive OT and PT, however, due to patient's observedendurance and therapy considerations, he may not be able to tolerate the full 3 hours of scheduled therapy. Therefore, he will be scheduled for as much therapy as he can tolerate with intentional rest breaks, shortened sessions, including providing therapy across 6 to 7 days. As the patient tolerates, the intensity, frequency and duration of his therapy program will be increased. Time/GCodes Start Time: 09:15 Stop Time: 10:45 Total Time Billed (hr/min): 90 Billed Treatment Time 1, EVM (10'), ADL 5 (80') CRUMPACKER,AYAH OT Dec 02, 2020 11:36
--- NOTE | 2020-12-02 12:39 | ST Cognitive Linguistic Eval ---
Speech Evaluation-General Medical Diagnosis Critical Illness Myopathy Onset Date: Oct 09, 2020 Therapy Diagnosis Therapy Diagnosis: Cognitive-communication Precautions Precautions/Isolations: Fall Prevention, Standard Precautions Referral Referring Physician: Dr. Calderon Medical History Reviewed History: Yes Social History Current Living Status: Significant Other Speech PLF-Current Status Prior Level of Function Patient lived at home with his SO and four children. Subjective Patient was pleasant and cooperative with the cognitive assessment. Language Eval: Auditory Comprehends Simple Yes/No Ques: Functional Indent/Objects Multiple [place]: Functional Ident/Pics in Multiple [place]: Functional Follows 1-Step Commands: Functional Follows Complex Directions: Functional Follows General Conversations: Functional Language Eval: Verbal Language Completes Spontaneous Greeting: Functional Produces Auto, Serial Info: Functional Imitates Simple Words/Phrases: Functional Word Finding: Functional Requests Basic Needs: Functional States Basic Personal Info: Functional Expresses Complex Ideas: Functional Objective Cognitive Domain Attention: WNL Memory: WNL Problem Solving: Functional Executive Functions: WNL Visuospatial Skills: WNL Composite Severity Rating: WNL Clock Drawing Severity Rating: WNL Objective Formal/Standardized Tests [facility] Status ([facility]) Results 29/30, within normal range of function Oral Motor/Speech Production Within Normal Limits Impression Patient is a pleasant 25 y/o who was admitted to the ARU for COVID 19 recovery. The patient was given the [facility] with a score of 29/30 obtained. The patient's SO other was present for the evaluation. The patient does a trach with a speaking valve. He is also currently on a regular diet with thin liquids without complications. The patient does not require further ST services at this time. Speech Patient Assess Expression of Ideas/Wants: Expression (4) Understanding Verbal Content: Understands (4) Brief Interview-Mental Status: Yes Repetition of Three Words: Three (3) Temporal Orientation: Year: Correct (3) Temporal Orientation: Month: Accurate within 5 days(2) Temporal Orientation: Day: Correct (1) Recall : Wear to say "Sock": Yes, no cue required (2) Recall : Color: Yes, no cue required (2) Recall : Bed: Yes, no cue required (2) Memory/Recall Ability: Current season, Location of own room, That he or she is in a hsp/hsp unit Speech-Plan Patient/Family Goals Patient/Family Goals: Patient plans on returning to his home where he lives with his SO and four young children. Treatment Plan Speech Therapy Treatment Plan: Discontinue ST Treatment Duration: Dec 02, 2020 Frequency: 1 time per week Estimated Hrs Per Day: .5 hour per day Rehab Potential: Good Barriers to Learning: none identified Pt/Family Agrees to Plan: Yes Safety Risks/Education Teaching Recipient: Patient, Significant Other Teaching Methods: Discussion Response to Teaching: Verbalize Understanding Education Topics Provided: Safety within his room, communication of wants/needs Time Speech Therapy Time In: 11:00 Speech Therapy Time Out: 11:30 Total Billed Time: 30 Billed Treatment Time 1, EDD PUGA [place] ST Dec 02, 2020 12:39
--- NOTE | 2020-12-02 15:50 | Physical Therapy Daily Note ---
PT Daily Note-Current Subjective Patient lying in bed with Fiance watching tv. Patient rates pain at 0/10 currently and is agreeable to treatment. Mental Status Patient Orientation: Person, Place, Time, Situation Transfers SCALE: Activities may be completed with or without assistive devices. 3-Hldlviodug-frlregj completes the activity by him/herself with no assistance from a helper. 5-Set-up or Clean-up Assistance-helper sets up or cleans up; patient completes activity. [place] assists only prior to or following the activity. 4-Supervision or Touching Assistance-helper provides verbal cues and/or touching/steadying and/or contact guard assistance as patient completes activity. Assistance may be provided throughout the activity or intermittently. 3-Partial/Moderate Assistance-helper does LESS THAN HALF the effort. [place] lifts, holds or supports trunk or limbs, but provides less than half the effort. 2-Substantial/Maximal Assistance-helper does MORE THAN HALF the effort. [place] lifts or holds trunk or limbs and provides more than half the effort. 2-Rbmtsncmn-jdxtqi does ALL the effort. Patient does none of the effort to complete the activity. Or, the assistance of 2 or more helpers is required for the patient to complete the activity. If activity was not attempted, code reason: 7-Patient Refused. 9-Not Applicable-not attempted and the patient did not perform the activity before the current illness, exacerbation or injury. 10-Not Attempted due to Environmental Limitations-(lack of equipment, weather restraints, etc.). 88-Not Attempted due to Medical Conditions or Safety Concerns. Roll Left & Right (QC): 6 Sit to Lying (QC): 6 Lying to Sitting/Side of Bed(Q: 6 Sit to Stand (QC): 5 Chair/Sxd-hx-Wvwgj Xfer(QC): 5 Toilet Transfer (QC): 5 Car Transfer (QC): 5 Gait Training Does the Patient Walk?: Yes Distance: 240 ft, 200 ft Walk 10 feet (QC): 5 Walk 50 ft with 2 Turns(QC): 5 Walk 150 ft (QC): 5 Walking 10ft/uneven surface-QC: 5 Gait Persons Needed: 2 Gait Assistive Device: FWW Patient demonstrates significant improvement in gait pattern and distance, but requires 2 sitting rest breaks and additional person to assist with w/c for sitting as needed due to decline in endurance. Exercises Seated Therapy Exercises: Ankle pumps, Long arc quads, Hip flexion, Hamstring Curls, Hip abd/add Seated Reps: 20 Treatments Visit, gait, ex Assessment Current Status: Excellent Progress Patient tolerated treatment well with good improvement to activity and significant increase in gait distance. Patient required skill of PT to guard during gait due to fatigue and potential fall risk from recent illness, and one person to follow with w/c. Patient performs all bed mobility and transfers with mod I/I. O2 sats monitored throughout the treatment and O2 sats dropped to 90%, however patient was able to increase O2 saturation with deep, pursed lip breathing. Patient performed LE therapeutic exercise as listed above. Patient sitting on edge of bed post treatment with all needs met, nursing notified, call light in reach and fiance in room. PT Short Term Goals Short Term Goals Time Frame: Dec 09, 2020 Chair/zxa-eo-cvgyu transfer: 5 Toilet transfer: 5 Car transfer: 5 Walk 10 feet: 5 Walk 50 feet with two turns: 5 Walk 150 feet: 5 Walking 10ft on uneven surface: 5 1 step (curb): 5 4 steps: 5 12 steps: 5 Picking up objects: 5 Does pt use a wc or scooter: No Wheel 50ft w/2 turns: 9 Wheel 150 feet: 9 Type: N/A PT Fpc Goals Fpc Goals PT Fpc Goals Time Frame: Dec 23, 2020 Roll Left & Right (QC): 6 Sit to Lying (QC): 6 Lying-Sitting on Side/Bed(QC): 6 Sit to Stand (QC): 6 Chair/Wjk-cl-Qismb Xfer(QC): 6 Toilet Transfer (QC): 6 Car Transfer (QC): 6 Does the Patient Walk: Yes Walk 10 feet (QC): 6 Walk 50ft with 2 Turns (QC): 6 Walk 150 ft (QC): 6 Walking 10ft on Uneven Surface: 6 1 Step (curb) (QC): 6 4 Steps (QC): 6 12 Steps (QC): 6 Picking up an Object (QC): 6 Does the Pt use WC or Scooter?: No Wheel 50 feet with 2 turns (QC: 9 Type: N/A Wheel 150 feet: 9 Type: N/A PT Plan Treatment/Plan Treatment Plan: Continue Plan of Care Treatment Plan: Bed Mobility, Concurrent Therapy, Education, Functional Activity Trudy, Functional Strength, Group Therapy, Gait, Safety, Therapeutic Exercise, Transfers Treatment Duration: Jan 15, 2021 Frequency: At least 5 of 7 days/Wk (IRF) Estimated Hrs Per Day: 1.5 hours per day Patient and/or Family Agrees t: Yes Safety Risks/Education Patient Education: Gait Training, Reviewed Precautions, Safety Issues Teaching Recipient: Patient, Significant Other Time/GCodes Time In: 1400 Time Out: 1430 Total Billed Treatment Time: 30 Total Billed Treatment Visit, herman, ex TARAN CAGLE PT Dec 02, 2020 15:50
[2020-12-02 20:00] VITALS: BP 119/76
--- NOTE | 2020-12-02 20:51 | Individualized Plan of Care ---
Individualized Plan of Care Rehab Nursing IPOC Order Admission Date Dec 01, 2020 at 16:40 Current Orders Orders Admission Arrival Bed Request (12/01/20 16:41) Nursing Communication (Order) (12/01/20 16:55) HOB (12/01/20 16:55) Admission Order(Inpt,Obs,Sdc) (12/01/20 17:07) Vital Signs: Per Unit Policy ( (12/01/20 17:07) Delvis Kevine (12/01/20 17:07) Sequential Compression Device .admit (12/01/20 17:07) Seed Cleaner-Inpt Rehab Con (12/01/20 17:07) Rehab Nursing Orders-Ipoc (12/01/20 17:07) Physical Therapy Rehab Orders (12/01/20 17:07) Occupational Therapy Rehab Ord (12/01/20 17:07) Speech Therapy Rehab Orders (12/01/20 17:07) Cbc With Automated Diff (12/02/20 06:00) Comprehensive Metabolic Panel (12/02/20 06:00) Precautions (Aru) (12/01/20 17:07) Rehab-Intensity Of Therapy (12/01/20 17:07) Initiate Admission Nursing Pro .admission (12/01/20 17:07) Alprazolam Tablet (Xanax Tablet) (12/01/20 17:15) Calcium Carbonate Chew Tablet (Antacid C (12/01/20 17:15) Diphenhydramine Tablet (Benadryl Tablet) (12/01/20 17:15) Docusate Sodium Capsule (Colace Capsule) (12/01/20 21:00) Docusate Sodium Capsule (Colace Capsule) (12/01/20 17:15) Bisacodyl Suppository (Dulcolax Supposit (12/01/20 17:15) Lactulose Oral Solution (Enulose Oral So (12/01/20 17:15) Na Phos/Na Biphos Enema (Fleet Enema Venkat (12/01/20 17:15) Guaifenesin/Codeine Syrup (Robitussin Ac (12/01/20 17:15) Loperamide Tablet (Imodium Tablet) (12/01/20 17:15) Melatonin Tablet (Melatonin Tablet) (12/01/20 17:15) Polyethylene Glycol Powder Pkt (Miralax (12/01/20 21:00) Ondansetron Oral Dissolve Tab (Zofran (12/01/20 17:15) Senna S Tablet (Senokot S Tablet) (12/01/20 21:00) Therapeutic Activity Goals: .PRN (12/01/20 17:07) Nursing Communication (Order) (12/01/20 ) Naloxone Injection (Narcan Injection) (12/01/20 17:15) Acetaminophen Tablet (Tylenol Tablet) (12/01/20 17:15) Code/Resuscitation (12/01/20 17:07) Nursing Communication (Order) (12/01/20 17:17) Acetaminophen Tablet/Caplet (Tylenol T (12/01/20 17:30) Albuterol Pre-Mix Nebs (Rt) (Proventil (12/01/20 18:00) Apixaban Tablet (Eliquis Tablet) (12/01/20 21:00) Metoprolol Succinate (Xl) Tab (Toprol Xl (12/02/20 09:00) Sertraline Tablet (Zoloft Tablet) (12/02/20 09:00) Trazodone Tablet (Desyrel Tablet) (12/01/20 21:00) (Nf) Diazepam (12/01/20 21:00) Svn Small Volume Nebulizer (12/01/20 17:59) Diazepam Tablet (Valium Tablet) (12/01/20 21:00) General/Regular (12/02/20 Breakfast) Metoprolol Tartrate (Ir) Tab (Lopressor (12/02/20 10:00) Patient Visit (12/02/20 ) Speech Sound Lang Comp (12/02/20 ) Treat. Speech/Lang/Voice (12/02/20 ) Patient Visit (12/02/20 ) Pt Eval Low Complexity (12/02/20 ) Gait Training, Ea 15 Min (12/02/20 ) Exercise Therap, Ea 15 Min (12/02/20 ) Functional Activities, Ea 15 (12/02/20 ) Patient Visit (12/02/20 ) Exercise Therap, Ea 15 Min (12/02/20 ) Gait Training, Ea 15 Min (12/02/20 ) Rehab Nursing Orders: Ongoing Assess. of Function Status, Bladder Management, Bladder Scan, Bladder Training, Bowel Management, Bowel Training, Disease Management & Educaiton, DVT Prophylaxis, Fall Prevention, Fluid/Electrolyte/Nutrition Mgmt, Infection Prevention, Medication Management & Education, Management of Risks & Complications, Management of Skin Intergrity, Nutrition Management, Pain Management, Patient/Family Support Intensity of Therapy to be met Patient to be seen: Min.3h per day/5 of 7d PT IPOC Problem List: Activity Tolerance, Functional Strength, Safety, Balance, Gait, Transfer Treatment Plan: Continue Plan of Care Bed Mobility, Concurrent Therapy, Education, Functional Activity Trudy, Functional Strength, Group Therapy, Gait, Safety, Therapeutic Exercise, Transfers Treatment Duration: Jan 15, 2021 Frequency: At least 5 of 7 days/Wk (IRF) Estimated Hrs Per Day: 1.5 hours per day OT IPOC Problems: Decreased Activ Tolerance, Decreased UE Strength, Impaired Funct Balance, Impaired I ADL's, Impaired Self-Care Skills OT Treatment, Training and Edu: Yes Plan of Care: ADL Retraining, Functional Mobility, Group Exercise/Act as Ind, UE Funct Exercise/Act Treatment Duration: Dec 26, 2020 Frequency: Modified Program (IRF) Estimated Hrs Per Day: [address] IPOC Speech Therapy Treatment Plan: Discontinue ST Treatment Duration: Dec 02, 2020 Frequency: 1 time per week Estimated Hrs Per Day: .5 hour per day Seed Cleaner/Case Mgmt Seed Cleaner/Case Managemen: Discharge Planning Dietitian/Supervisor Backfilling Dietitian/Supervisor Backfilling to monitor nutritional status and make changes and/or recommendations as needed and work with speech pathology on dietary upgrades as the occur. Physician IPOC Medical Issues being managed closely and that require the 24 hour availability of a physician: Recent catastrophic COVID-19 pneumonia status post trach and ECMO will require close monitoring for any decompensation Medical Issues: Bowel/Bladder Function, DVT Prophylaxis, Falls Precautions, Fluid/Electrolyte/Nutrition Balance, Infection Protection, Pain Management Brief Synthesis of Preadmission Screen, Post-Admission Evaluation, and Therapy Evaluations: PT and OT will focus on regaining function in order to regain enough ambulatory skills and independent ADLs in order to return home. Medical Prognosis: Good Anticipated Length of Stay: 14 This patient was highly independent pre- morbidly. Due to a COVID-19 viral infection, the patient now has deficits that warrant inpatient Acute Rehab. The patient will clearly benefit from intensive PT and OT, however, due to patients observed endurance and therapy considerations during the COVID-19 pandemic, therapy will provide 1 hour of PT and 1 hour of OT 5 out of 7 days per the patients week. The patient also needs 24 hour Rehab Nursing care and Rehab Physician management for active medical issues including for example - COVID-19 respiratory symptom recovery and hypoxemia, ARDS, PNA. From the initial therapy evaluations the patient has been found to require Min Assist with ambulation (4ft, FWW/ASSISTANT PROFESSOR OF ECONOMICS), transfers and bed mobility. He requires Max Assist with LE dressing and bathing. He is dependent for toileting hygiene. MYRNA WASSERMAN DO Dec 02, 2020 20:51
[2020-12-02] MEDS: DIAZEPAM 5 MG (VALIUM) TABLET PO SCH (22:45)
[2020-12-02] MEDS: traZODone 100 MG (DESYREL) TAB PO SCH (22:46)
[2020-12-03] MEDS: APIXABAN 5 MG (ELIQUIS) TABLET PO SCH ×2 (07:57→23:04)
[2020-12-03] MEDS: meTOprolol TARTRATE 25 MG (LOPRESSOR) TABLET PO SCH ×3 (07:57→23:05)
[2020-12-03] MEDS: SERTRALINE 100 MG (ZOLOFT) TAB PO SCH (07:57)
[2020-12-03 08:00] VITALS: BP 124/77
[2020-12-03] MEDS: DOCUSATE SODIUM 100 MG (COLACE) CAP PO SCH ×2 (08:05→23:25)
--- NOTE | 2020-12-03 09:12 | Physical Therapy Daily Note ---
PT Daily Note-Current Subjective Pt sitting in recliner upon arrival. Pt is on Room air while in room per Nurse. Pt agrees to PT, reporting wanting to get stronger & go home. Pain Numeric Pain Scale: 0-No Pain Mental Status Patient Orientation: Person, Place, Time, Situation Attachments: Oxygen, Other-See Comments (Trach. & O2 ) Transfers SCALE: Activities may be completed with or without assistive devices. 4-Vjthfduhzu-imnqyvk completes the activity by him/herself with no assistance from a helper. 5-Set-up or Clean-up Assistance-helper sets up or cleans up; patient completes activity. [place] assists only prior to or following the activity. 4-Supervision or Touching Assistance-helper provides verbal cues and/or touching/steadying and/or contact guard assistance as patient completes activity. Assistance may be provided throughout the activity or intermittently. 3-Partial/Moderate Assistance-helper does LESS THAN HALF the effort. [place] lifts, holds or supports trunk or limbs, but provides less than half the effort. 2-Substantial/Maximal Assistance-helper does MORE THAN HALF the effort. [place] lifts or holds trunk or limbs and provides more than half the effort. 2-Bwjngrlad-uzfyii does ALL the effort. Patient does none of the effort to complete the activity. Or, the assistance of 2 or more helpers is required for the patient to complete the activity. If activity was not attempted, code reason: 7-Patient Refused. 9-Not Applicable-not attempted and the patient did not perform the activity before the current illness, exacerbation or injury. 10-Not Attempted due to Environmental Limitations-(lack of equipment, weather restraints, etc.). 88-Not Attempted due to Medical Conditions or Safety Concerns. Sit to Stand (QC): 6 Weight Bearing Full Weight Bearing Full Weight Bearing Gait Training Does the Patient Walk?: Yes Distance: 450' x2 Walk 10 feet (QC): 6 Walk 50 ft with 2 Turns(QC): 6 Walk 150 ft (QC): 6 Gait Assistive Device: FWW Wheelchair Training Does the Pt Use a Wheelchair?: No Exercises Supine Ex: Ankle pumps, Quad Set, Glut sets, Heel Slides, Short Arc Quads, Straight leg raise, Hip abd/add Supine Reps: 15 Seated Therapy Exercises: Ankle pumps, Long arc quads, Hip flexion, Hip abd/add Seated Reps: 15 Treatments Finishes taking morning meds given by Nurse. Pt declines needing BR. TF to standing and amb. in hallway (no RB). Pt uses NuStep for 15m at [facility] 6. Pt is gi kenny written HEP for Supine & Seated Ex. These are reviewed and explained how PT will increase resistance as necessary. Pt amb. in hallway again then returns to room to rest in recliner. All needs met, call light in hand. O2 monitored throughout tx. Assessment Current Status: Good Progress O2 is 96% to start tx on Room Air. O2 is monitored throughout tx. After initial ambulation using O2, pt dropped to 90%. Pt asked during Ex to attempt w/o O2. After ~450' walk, O2 drops to 84% so O2 is again used when returning to recliner. Pt recovers w/in ~30". Pt is on O2 in room w/recovery. PT Short Term Goals Short Term Goals Time Frame: Dec 09, 2020 Chair/ltj-id-gxuwm transfer: 5 Toilet transfer: 5 Car transfer: 5 Walk 10 feet: 5 Walk 50 feet with two turns: 5 Walk 150 feet: 5 Walking 10ft on uneven surface: 5 1 step (curb): 5 4 steps: 5 12 steps: 5 Picking up objects: 5 Does pt use a wc or scooter: No Wheel 50ft w/2 turns: 9 Wheel 150 feet: 9 Type: N/A PT Cleaning Handyman Goals Retirement Goals PT Retirement Goals Time Frame: Dec 23, 2020 Roll Left & Right (QC): 6 Sit to Lying (QC): 6 Lying-Sitting on Side/Bed(QC): 6 Sit to Stand (QC): 6 Chair/Xxi-bp-Vthle Xfer(QC): 6 Toilet Transfer (QC): 6 Car Transfer (QC): 6 Does the Patient Walk: Yes Walk 10 feet (QC): 6 Walk 50ft with 2 Turns (QC): 6 Walk 150 ft (QC): 6 Walking 10ft on Uneven Surface: 6 1 Step (curb) (QC): 6 4 Steps (QC): 6 12 Steps (QC): 6 Picking up an Object (QC): 6 Does the Pt use WC or Scooter?: No Wheel 50 feet with 2 turns (QC: 9 Type: N/A Wheel 150 feet: 9 Type: N/A PT Plan Problem List Problem List: Activity Tolerance Treatment/Plan Treatment Plan: Continue Plan of Care Treatment Plan: Bed Mobility, Concurrent Therapy, Education, Functional Activity Trudy, Functional Strength, Group Therapy, Gait, Safety, Therapeutic Exercise, Transfers Treatment Duration: Jan 15, 2021 Frequency: At least 5 of 7 days/Wk (IRF) Estimated Hrs Per Day: 1.5 hours per day Patient and/or Family Agrees t: Yes Safety Risks/Education Patient Education: Issued Written HEP Teaching Recipient: Patient Teaching Methods: Demonstration, Discussion Response to Teaching: Verbalize Understanding, Return Demonstration Time/GCodes Time In: 800 Time Out: 900 Total Billed Treatment Time: 60 Total Billed Treatment 1, GT x2 (25m) & EX x2 (35m) JESSICA FALL DIRECTOR OF QUANTITATIVE RESEARCH Dec 03, 2020 09:12
[2020-12-03] MEDS: polyethylene glycoL POWDER 17 GM (MIRALAX) PACK PO SCH ×2 (09:29→23:25)
[2020-12-03] MEDS: SENNA W/DOCUSATE (SENOKOT S) TABLET PO SCH ×2 (09:29→23:26)
--- NOTE | 2020-12-03 10:12 | Diagnostic Imaging Report ---
INDICATION: Chronic myopathy. TIME OF EXAM: 9:48 AM No prior studies are available for comparison. Tracheostomy tube has tip above the wang. There are bilateral perihilar infiltrates. Heart size normal. There is no effusion or pneumothorax. IMPRESSION: Bilateral perihilar pulmonary infiltrates. Dictated by: Dictated on workstation # [id number]
--- NOTE | 2020-12-03 10:34 | Occupational Ther Daily Note ---
OT Current Status-Daily Note Subjective Pt seated in recliner, agreeable to OT tx with focus on ADLs. Mental Status/Objective Attachments: Oxygen (trach collar) ADL-Treatment Therapy Code Descriptions/Definitions Functional [place] Measure: 0=Not Assessed/NA 4=Minimal Assistance 1=Total Assistance 5=Supervision or Setup 2=Maximal Assistance 6=Modified [place] 3=Moderate Assistance 7=Complete IndependenceSCALE: Activities may be completed with or without assistive devices. 9-Vlnmclfxin-sjskcmh completes the activity by him/herself with no assistance from a helper. 5-Set-up or Clean-up Assistance-helper sets up or cleans up; patient completes activity. [place] assists only prior to or following the activity. 4-Supervision or Touching Assistance-helper provides verbal cues and/or touching/steadying and/or contact guard assistance as patient completes activity. Assistance may be provided throughout the activity or intermittently. 3-Partial/Moderate Assistance-helper does LESS THAN HALF the effort. [place] lifts, holds or supports trunk or limbs, but provides less than half the effort. 2-Substantial/Maximal Assistance-helper does MORE THAN HALF the effort. [place] lifts or holds trunk or limbs and provides more than half the effort. 0-Menbqzpcb-oftlib does ALL the effort. Patient does none of the effort to complete the activity. Or, the assistance of 2 or more helpers is required for the patient to complete the activity. If activity was not attempted, code reason: 7-Patient Refused. 9-Not Applicable-not attempted and the patient did not perform the activity before the current illness, exacerbation or injury. 10-Not Attempted due to Environmental Limitations-(lack of equipment, weather restraints, etc.). 88-Not Attempted due to Medical Conditions or Safety Concerns. Eating (QC): 6 (Per pt report) Oral Hygiene (QC): 6 (Per pt report) Shower/Bathe Self (QC): 5 (set up to cover trach. Pt washed/dried all parts.) Upper Body Dressing (QC): 5 (set up) Lower Body Dressing (QC): 5 (set up, pt able to doff/don LE clothing) On/Off Footwear: 5 (set up, pt able to doff/don gripper socks) Toileting Hygiene (QC): 6 (IND with clothing management and hygiene) Toilet Transfer (QC): 6 (IND on/off toilet) Other Treatment Pt seated in recliner, performed functional mobility into bathroom and onto toilet without AD. He completed toileting independently, then transferred to MS to doff clothes. OT covered pt's trach prior to shower, then pt completed shower, washing/drying all parts. He donned clothes after set up assistance, standing at sink to apply deodorant without AD. He returned to recliner. Post tx, pt seated in recliner, call light in reach and all needs met. Education OT Patient Education: Correct positioning, Energy conservation, Exercise program, Modified ADL techniques, Progress toward Goal/Update tx plan, Purpose of tx/functional activities, Rehab process Teaching Recipient: Patient Teaching Methods: Discussion Response to Teaching: Verbalize Understanding OT Short Term Goals Short Term Goals Time Frame: Dec 10, 2020 Toileting hygiene: 5 Shower/bathe self: 5 Upper body dressin Lower body dressin Putting on/taking off footwear: 5 OT Halfway Goals Infant And Toddler Teacher Goals Time Frame: Dec 26, 2020 Eating (QC): 6 Oral Hygiene (QC): 6 Toileting Hygiene (QC): 6 Shower/Bathe Self (QC): 6 Upper Body Dressing (QC): 6 Lower Body Dressing (QC): 6 On/Off Footwear (QC): 6 Additional Goals: 1-Demonstrate ADL Tasks, 2-Verbalize Understanding, 3- ImproveStrength/Trudy 1=Demonstrate adherence to instructed precautions during ADL tasks. 2=Patient will verbalize/demonstrate understanding of assistive devices/modifications for ADL. 3=Patient will improve strength/tolerance for activity to enable patient to perform ADL's. OT Education/Plan Problem List/Assessment Assessment: Decreased Activ Tolerance, Decreased UE Strength, Impaired Funct Balance, Impaired I ADL's, Impaired Self-Care Skills, Restricted Funct UE ROM Discharge Recommendations Plan/Recommendations: Continue POC Treatment Plan/Plan of Care Patient would benefit from OT for education, treatment and training to promote independence in ADL's, mobility, safety and/or upper extremity function for ADL's. Plan of Care: ADL Retraining, Functional Mobility, Group Exercise/Act as Ind, UE Funct Exercise/Act Treatment Duration: Dec 26, 2020 Frequency: Modified Program (IRF) Estimated Hrs Per Day: 1 hour per day Rehab Potential: Good Time/GCodes Start Time: 09:30 Stop Time: 10:30 Total Time Billed (hr/min): 60 Billed Treatment Time 1, ADL 4 AYAH DIAS OT Dec 03, 2020 10:34
--- NOTE | 2020-12-03 10:55 | Pulmonary Consultation ---
History of Present Illness History of Present Illness Date Seen by Provider: Dec 03, 2020 Time Seen by Provider: 10:10 Date of Admission Patient acknowledged, consented, and participated in this virtual visit which was conducted using real time audio/video. Thank you for asking us to see this patient for tracheostomy management. HPC: Recent events:Admitted to hospital 10/10/2020 with Covid pna complicated by need for ECMO, tracheotomy, PTX, DVT and critical illness myopathy. Here for rehab. PMH: GERD w spicy foods, anx. SH: smoking history: N FH: Non-contributory. ROS: Feels much better, as in HPI. PE: VSS 95%. Conversational on trach collar with room air only. Obese. HEENT: No obvious masses, adenopathy or JVD. Chest: clear to auscultation w diminished BS. CV: RRR S1 S2 No murmur or added sounds. Abd: Non-tender. Bowel sounds Y. : Unremarkable. [place] N. DIP LUBE OPERATOR/psychiatric: Alert and oriented, grossly intact. No obvious focal findings. Extremities: No edema. Capillary refill < 3 seconds. Skin: unremarkable. Results: Decreased Hb 10.0. CXR w B perihilar infilts. A/P: S/P Respiratory insufficiency/distress:would cap tracheostomy tube and if tolerated would decannulate. Available chart/ vitals / labs / Images reviewed. Video assessment done using teleICU camera, rest of exam as per RN. Respiratory: Continue present management with PRN Albuterol. Cont Eliquis and r ehab therapies. Monitor for increasing oxygenation needs and/or need for ICU transfer (unlikely at this time). Discussed with ZEENAT Stone. Asked RN to reach out to eICU if any questions or concerns later. Time spent with patient/coordination of care with other health professionals (mins) 25. Allergies and Home Medications Allergies Coded Allergies: No Known Drug Allergies (Unverified , 12/01/20) Home Medications Albuterol Sulfate 1 Puff Puff, 2 PUFF INH Q4H PRN for WHEEZING, (Reported) 1 PUFF = 90 MCG Apixaban 5 Mg Tablet, 5 MG PO BID, (Reported) Diazepam 10 Mg Tablet, 10 MG PO HS, (Reported) Metoprolol Succinate 25 Mg Tab.er.24h, 25 MG PO DAILY, (Reported) Sertraline HCl 100 Mg Tablet, 100 MG PO DAILY, (Reported) Trazodone HCl 100 Mg Tablet, 100 MG PO HS, (Reported) Past Medical/Social/Family Hx Patient Social History Marrital Status: cohabiting Employed/Student: employed Tobacco Use?: No Smoking Status: Never a Smoker Substance use?: No Alcohol Use?: No Pt stated abuse/neglect: No Current Status Advance Directives: No Communicates: Verbally Is interpretation needed?: No Review of Systems Constitutional: see HPI EENTM: see HPI Respiratory: see HPI Genitourinary: see HPI Musculoskeletal: see HPI Skin: see HPI Psychiatric/Neurological: See HPI All Other Systems Reviewed Negative Unless Noted: Yes Sepsis Event Evaluation Height, Weight, BMI Height: '" Weight: lbs. oz. kg; 35.00 BMI Method: Exam Exam Patient acknowledged, consented, and participated in this virtual visit which was conducted using real time audio/video Vital Signs Date Time Temp Pulse Resp B/P (MAP) Pulse Ox O2 Delivery O2 Flow Rate FiO2 12/03/20 08:00 36.2 116 22 124/77 (93) 96 Trach Collar 6.00 28.00 12/03/20 07:55 96 Trach Collar 6.00 21 12/02/20 21:13 96 Trach Collar 6.00 28 12/02/20 21:03 93 Trach Collar 6.00 28 12/02/20 20:00 36.8 124 20 119/76 (90) 96 Trach Collar 6.00 28.00 12/02/20 11:07 116 119/76 (90) Height & Weight Height: '" Weight: lbs. oz. kg; 35.00 BMI Method: General Appearance: No Apparent Distress, WD/WN, Anxious, Chronically ill, Obese HEENT: PERRL/EOMI, Normal ENT Inspection, Pharynx Normal Neck: Full Range of Motion, Normal Inspection, Non Tender, Supple, Carotid Bruit Respiratory: Chest Non Tender, Lungs Clear, Normal Breath Sounds, No Accessory Muscle Use, No Respiratory Distress Cardiovascular: Regular Rate, Rhythm, No Edema, No Gallop, No JVD, No Murmur, Normal Peripheral Pulses Extremity: Normal Capillary Refill, Normal Inspection, Normal Range of Motion, Non Tender, No Calf Tenderness, No Pedal Edema Neurologic/Psychiatric: Alert, Oriented x3, No Motor/Sensory Deficits, Normal Mood/Affect, Motor Weakness (Generalized) Skin: Normal Color, Warm/Dry Lymphatic: No Adenopathy Results Lab Laboratory Tests 12/02/20 06:25 Assessment/Plan Assessment/Plan See free text. Critical Care: Critically Ill Patient Time spent on discussion(mins): 0 KENTON MILLER MD Dec 03, 2020 10:55
--- NOTE | 2020-12-03 13:24 | Occupational Ther Daily Note ---
OT Current Status-Daily Note Subjective Pt seated in recliner, agreeable to OT Tx. Pt's mom present throughout session ADL-Treatment Therapy Code Descriptions/Definitions Functional [place] Measure: 0=Not Assessed/NA 4=Minimal Assistance 1=Total Assistance 5=Supervision or Setup 2=Maximal Assistance 6=Modified [place] 3=Moderate Assistance 7=Complete IndependenceSCALE: Activities may be completed with or without assistive devices. 1-Tifyycaold-uppbxhx completes the activity by him/herself with no assistance from a helper. 5-Set-up or Clean-up Assistance-helper sets up or cleans up; patient completes activity. [place] assists only prior to or following the activity. 4-Supervision or Touching Assistance-helper provides verbal cues and/or touching/steadying and/or contact guard assistance as patient completes activity. Assistance may be provided throughout the activity or intermittently. 3-Partial/Moderate Assistance-helper does LESS THAN HALF the effort. [place] lifts, holds or supports trunk or limbs, but provides less than half the effort. 2-Substantial/Maximal Assistance-helper does MORE THAN HALF the effort. [place] lifts or holds trunk or limbs and provides more than half the effort. 0-Yqjnanntd-nmnplq does ALL the effort. Patient does none of the effort to complete the activity. Or, the assistance of 2 or more helpers is required for the patient to complete the activity. If activity was not attempted, code reason: 7-Patient Refused. 9-Not Applicable-not attempted and the patient did not perform the activity before the current illness, exacerbation or injury. 10-Not Attempted due to Environmental Limitations-(lack of equipment, weather restraints, etc.). 88-Not Attempted due to Medical Conditions or Safety Concerns. Eating (QC): 6 (IND with lunch) Toileting Hygiene (QC): 6 (IND) Toilet Transfer (QC): 6 (IND) Other Treatment Pt seated in recliner. In order to increase BUE strength and activity tolerance, pt completed x15-20 reps of the following exercises using 3-5lb weights: shoulder flexion (3lb), overhead tricep extension (5lb), elbow flexion (5lb), wrist flexion (3lb), wrist extension (3lb), and wrist ulnar/radial deviation (3lb). Pt instructed to complete 2-3 times a day, increasing reps and weight to tolerance, he verbalized understanding. Weights and printed HEP left in room. Pt performed functional mobility into bathroom, completed toileting independently, then transferred back to recliner, O2 saturation at 91% on RA. Post tx, pt seated in recliner, call light in reach and all needs met. Education OT Patient Education: Correct positioning, Energy conservation, Exercise program, Home exercise program, Modified ADL techniques, Progress toward Goal/Update tx plan, Purpose of tx/functional activities, Rehab process Teaching Recipient: Patient Teaching Methods: Discussion Response to Teaching: Verbalize Understanding OT Short Term Goals Short Term Goals Time Frame: Dec 10, 2020 Toileting hygiene: 5 Shower/bathe self: 5 Upper body dressin Lower body dressin Putting on/taking off footwear: 5 OT Assisted Goals Cnc Milling Machine Operator Goals Time Frame: Dec 26, 2020 Eating (QC): 6 Oral Hygiene (QC): 6 Toileting Hygiene (QC): 6 Shower/Bathe Self (QC): 6 Upper Body Dressing (QC): 6 Lower Body Dressing (QC): 6 On/Off Footwear (QC): 6 Additional Goals: 1-Demonstrate ADL Tasks, 2-Verbalize Understanding, 3-I mproveStrength/Trudy 1=Demonstrate adherence to instructed precautions during ADL tasks. 2=Patient will verbalize/demonstrate understanding of assistive devices/modifications for ADL. 3=Patient will improve strength/tolerance for activity to enable patient to perform ADL's. OT Education/Plan Problem List/Assessment Assessment: Decreased Activ Tolerance, Decreased UE Strength, Impaired Funct Balance, Impaired I ADL's, Impaired Self-Care Skills Discharge Recommendations Plan/Recommendations: Continue POC Treatment Plan/Plan of Care Patient would benefit from OT for education, treatment and training to promote independence in ADL's, mobility, safety and/or upper extremity function for ADL's. Plan of Care: ADL Retraining, Functional Mobility, Group Exercise/Act as Ind, UE Funct Exercise/Act Treatment Duration: Dec 26, 2020 Frequency: Modified Program (IRF) Estimated Hrs Per Day: 1 hour per day Rehab Potential: Good Time/GCodes Start Time: 12:45 Stop Time: 13:15 Total Time Billed (hr/min): 30 Billed Treatment Time 1, EX (15'), ADL (15') AYAH DIAS OT Dec 03, 2020 13:24
--- NOTE | 2020-12-03 16:18 | Physical Therapy Daily Note ---
PT Daily Note-Current Subjective Pt sitting in recliner upon arrival. Pt agrees to PT and is excited to try walking with SPC instead of FWW. Pain Numeric Pain Scale: 0-No Pain Mental Status Patient Orientation: Person, Place, Time, Situation Attachments: Oxygen Transfers SCALE: Activities may be completed with or without assistive devices. 1-Szipbrxkph-fzfewvp completes the activity by him/herself with no assistance from a helper. 5-Set-up or Clean-up Assistance-helper sets up or cleans up; patient completes activity. [place] assists only prior to or following the activity. 4-Supervision or Touching Assistance-helper provides verbal cues and/or touching/steadying and/or contact guard assistance as patient completes activity. Assistance may be provided throughout the activity or intermittently. 3-Partial/Moderate Assistance-helper does LESS THAN HALF the effort. [place] lifts, holds or supports trunk or limbs, but provides less than half the effort. 2-Substantial/Maximal Assistance-helper does MORE THAN HALF the effort. [place] lifts or holds trunk or limbs and provides more than half the effort. 7-Mntpmotyp-gbpxpi does ALL the effort. Patient does none of the effort to complete the activity. Or, the assistance of 2 or more helpers is required for the patient to complete the activity. If activity was not attempted, code reason: 7-Patient Refused. 9-Not Applicable-not attempted and the patient did not perform the activity before the current illness, exacerbation or injury. 10-Not Attempted due to Environmental Limitations-(lack of equipment, weather restraints, etc.). 88-Not Attempted due to Medical Conditions or Safety Concerns. Sit to Stand (QC): 6 Weight Bearing Full Weight Bearing Full Weight Bearing Gait Training Does the Patient Walk?: Yes Distance: 450' Walk 10 feet (QC): 5 Walk 50 ft with 2 Turns(QC): 5 Walk 150 ft (QC): 5 Gait Persons Needed: 1 Gait Assistive Device: Cane Single Point Pt takes one RB for short recovery period. Wheelchair Training Does the Pt Use a Wheelchair?: No Treatments Pt transfers to standing and amb. in hallway using SPC. Pt takes short RB then continues amb. Pt and COAL PICKER discuss what progress looks like and what pt wants to see for progress over the next week. Pt returns to room to rest in recliner at end of tx. All needs met, call light in hand. Assessment Current Status: Good Progress Pt is very motivated and continues to push self so he can get home for of his child. PT Short Term Goals Short Term Goals Time Frame: Dec 09, 2020 Chair/qsh-uc-ivdby transfer: 5 Toilet transfer: 5 Car transfer: 5 Walk 10 feet: 5 Walk 50 feet with two turns: 5 Walk 150 feet: 5 Walking 10ft on uneven surface: 5 1 step (curb): 5 4 steps: 5 12 steps: 5 Picking up objects: 5 Does pt use a wc or scooter: No Wheel 50ft w/2 turns: 9 Wheel 150 feet: 9 Type: N/A PT Automatic Transmission Mechanic Goals Residential Goals PT Automatic Transmission Mechanic Goals Time Frame: Dec 23, 2020 Roll Left & Right (QC): 6 Sit to Lying (QC): 6 Lying-Sitting on Side/Bed(QC): 6 Sit to Stand (QC): 6 Chair/Iic-qa-Jjsxh Xfer(QC): 6 Toilet Transfer (QC): 6 Car Transfer (QC): 6 Does the Patient Walk: Yes Walk 10 feet (QC): 6 Walk 50ft with 2 Turns (QC): 6 Walk 150 ft (QC): 6 Walking 10ft on Uneven Surface: 6 1 Step (curb) (QC): 6 4 Steps (QC): 6 12 Steps (QC): 6 Picking up an Object (QC): 6 Does the Pt use WC or Scooter?: No Wheel 50 feet with 2 turns (QC: 9 Type: N/A Wheel 150 feet: 9 Type: N/A PT Plan Problem List Problem List: Activity Tolerance Treatment/Plan Treatment Plan: Continue Plan of Care Treatment Plan: Bed Mobility, Concurrent Therapy, Education, Functional Activity Trudy, Functional Strength, Group Therapy, Gait, Safety, Therapeutic Exercise, Transfers Treatment Duration: Jan 15, 2021 Frequency: At least 5 of 7 days/Wk (IRF) Estimated Hrs Per Day: 1.5 hours per day Patient and/or Family Agrees t: Yes Safety Risks/Education Patient Education: Gait Training, Correct Positioning Teaching Recipient: Patient Teaching Methods: Discussion Response to Teaching: Verbalize Understanding Time/GCodes Time In: 1330 Time Out: 1400 Total Billed Treatment Time: 30 Total Billed Treatment 1, GT (20m) & FA (10m) JESSICA FALL COAL PICKER Dec 03, 2020 16:18
[2020-12-03 20:14] VITALS: BP 117/77
--- NOTE | 2020-12-03 21:20 | PM&R Progress Note ---
Subjective HPI/CC On Admission Date Seen by Provider: Dec 03, 2020 Time Seen by Provider: 10:00 Subjective/Events-last exam 12/03/2020: Patient doing much better No oxygen provided during therapy but he did get 86% Bowels moved last night Pulmonary consult recommended capping the trach Chest x-ray reviewed No pain 12/02/2020: Pt doing really well Taking a shower HR remains tachycardic so Metoprolol 12.5 BID will be started Denies any other new issues Fianc at the bedside Review of Systems General: Fatigue Pulmonary: Dyspnea Objective Exam Vital Signs Vital Signs Date Time Temp Pulse Resp B/P (MAP) Pulse Ox O2 Delivery O2 Flow Rate FiO2 12/03/20 21:00 96 Trach Collar 0.00 35 12/03/20 20:14 36.4 121 18 117/77 (90) Capillary Refill : General Appearance: No Apparent Distress, WD/WN, Anxious, Chronically ill, Obese HEENT: PERRL/EOMI, Normal ENT Inspection, Pharynx Normal Neck: Full Range of Motion, Normal Inspection, Non Tender, Supple, Carotid Bruit Respiratory: Chest Non Tender, Lungs Clear, Normal Breath Sounds, No Accessory Muscle Use, No Respiratory Distress Cardiovascular: Regular Rate, Rhythm, No Edema, No Gallop, No JVD, No Murmur, Normal Peripheral Pulses Gastrointestinal: Normal Bowel Sounds, No Organomegaly, No Pulsatile Mass, Non Tender, Soft Back: Normal Inspection, No CVA Tenderness, No Vertebral Tenderness Extremity: Normal Capillary Refill, Normal Inspection, Normal Range of Motion, Non Tender, No Calf Tenderness, No Pedal Edema Neurologic/Psychiatric: Alert, Oriented x3, No Motor/Sensory Deficits, Normal Mood/Affect, Motor Weakness (Generalized) Skin: Normal Color, Warm/Dry Lymphatic: No Adenopathy Results/Procedures Lab Patient resulted labs reviewed. FIM Transfers Therapy Code Descriptions/Definitions Functional [place] Measure: 0=Not Assessed/NA 4=Minimal Assistance 1=Total Assistance 5=Supervision or Setup 2=Maximal Assistance 6=Modified [place] 3=Moderate Assistance 7=Complete IndependenceSCALE: Activities may be completed with or without assistive devices. 4-Bhrqyhfwso-mamwmqb completes the activity by him/herself with no assistance from a helper. 5-Set-up or Clean-up Assistance-helper sets up or cleans up; patient completes activity. [place] assists only prior to or following the activity. 4-Supervision or Touching Assistance-helper provides verbal cues and/or touching/steadying and/or contact guard assistance as patient completes activity. Assistance may be provided throughout the activity or intermittently. 3-Partial/Moderate Assistance-helper does LESS THAN HALF the effort. [place] lifts, holds or supports trunk or limbs, but provides less than half the effort. 2-Substantial/Maximal Assistance-helper does MORE THAN HALF the effort. [place] lifts or holds trunk or limbs and provides more than half the effort. 4-Dmsqqrkli-tzuqik does ALL the effort. Patient does none of the effort to complete the activity. Or, the assistance of 2 or more helpers is required for the patient to complete the activity. If activity was not attempted, code reason: 7-Patient Refused. 9-Not Applicable-not attempted and the patient did not perform the activity before the current illness, exacerbation or injury. 10-Not Attempted due to Environmental Limitations-(lack of equipment, weather restraints, etc.). 88-Not Attempted due to Medical Conditions or Safety Concerns. Roll Left to Right (QC): 6 Sit to Lying (QC): 6 Sit to Stand (QC): 6 Chair/Ucg-wt-Rxzem Xfer(QC): 5 Car Transfer (QC): 5 Gait Training Does the Patient Walk?: Yes Distance: 450' Walk 10 feet (QC): 5 Walk 50 ft with 2 Turns(QC): 5 Walk 150 ft (QC): 5 Walking 10ft/uneven surface-QC: 5 Gait Persons Needed: 1 Gait Assistive Device: Cane Single Point Wheelchair Training Does the Pt Use a Wheelchair?: No Distance: N/A Wheel 50 ft with 2 turns (QC): 9 Wheel 150 ft (QC): 9 Type of Wheelchair: N/A Stair Training #of Steps: 0 1 Step (curb) (QC): 88 4 Steps (QC): 88 12 Steps (QC): 8 Balance Picking up an Object (QC): 4 ADL-Treatment Eating (QC): 6 (IND with lunch) Oral Hygiene (QC): 6 (Per pt report) Shower/Bathe Self (QC): 5 (set up to cover trach. 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
[2020-12-03] MEDS: DIAZEPAM 5 MG (VALIUM) TABLET PO SCH (23:05)
[2020-12-03] MEDS: traZODone 100 MG (DESYREL) TAB PO SCH (23:26)
[2020-12-04 08:00] VITALS: BP 123/82
[2020-12-04] MEDS: DOCUSATE SODIUM 100 MG (COLACE) CAP PO SCH ×2 (09:22→19:38)
[2020-12-04] MEDS: polyethylene glycoL POWDER 17 GM (MIRALAX) PACK PO SCH ×2 (09:22→19:38)
[2020-12-04] MEDS: SENNA W/DOCUSATE (SENOKOT S) TABLET PO SCH ×2 (09:22→19:38)
[2020-12-04] MEDS: APIXABAN 5 MG (ELIQUIS) TABLET PO SCH ×2 (09:23→22:31)
[2020-12-04] MEDS: SERTRALINE 100 MG (ZOLOFT) TAB PO SCH (09:23)
[2020-12-04] MEDS: meTOprolol TARTRATE 25 MG (LOPRESSOR) TABLET PO SCH ×2 (09:23→22:31)
--- NOTE | 2020-12-04 10:25 | Occupational Ther Daily Note ---
OT Current Status-Daily Note Subjective Pt seated upright in recliner, agreeable to OT Tx. 0/10 pain Mental Status/Objective Patient Orientation: Person, Place, Time, Situation ADL-Treatment Therapy Code Descriptions/Definitions Functional [place] Measure: 0=Not Assessed/NA 4=Minimal Assistance 1=Total Assistance 5=Supervision or Setup 2=Maximal Assistance 6=Modified [place] 3=Moderate Assistance 7=Complete IndependenceSCALE: Activities may be completed with or without assistive devices. 5-Ttwnheioqe-gkbjfws completes the activity by him/herself with no assistance from a helper. 5-Set-up or Clean-up Assistance-helper sets up or cleans up; patient completes activity. [place] assists only prior to or following the activity. 4-Supervision or Touching Assistance-helper provides verbal cues and/or touching/steadying and/or contact guard assistance as patient completes activity. Assistance may be provided throughout the activity or intermittently. 3-Partial/Moderate Assistance-helper does LESS THAN HALF the effort. [place] lifts, holds or supports trunk or limbs, but provides less than half the effort. 2-Substantial/Maximal Assistance-helper does MORE THAN HALF the effort. [place] lifts or holds trunk or limbs and provides more than half the effort. 0-Sfujmfijx-wrwyuw does ALL the effort. Patient does none of the effort to complete the activity. Or, the assistance of 2 or more helpers is required for the patient to complete the activity. If activity was not attempted, code reason: 7-Patient Refused. 9-Not Applicable-not attempted and the patient did not perform the activity before the current illness, exacerbation or injury. 10-Not Attempted due to Environmental Limitations-(lack of equipment, weather restraints, etc.). 88-Not Attempted due to Medical Conditions or Safety Concerns. Eating (QC): 6 (IND) Oral Hygiene (QC): 6 (IND) Shower/Bathe Self (QC): 5 (set up assist. OT covered trach prior to shower.) Upper Body Dressing (QC): 6 (IND with pullover shirt) Lower Body Dressing (QC): 6 (IND donning/doffing pants) On/Off Footwear: 6 (IND with donning/doffing gripper socks.) Toileting Hygiene (QC): 6 (IND, pt managed hygiene and clothing management) Toilet Transfer (QC): 6 (IND on/off toilet.) Other Treatment Pt seated in recliner, agreeable to OT tx. Pt gathered clothing from closet, then performed functional mobility to bathroom. Pt completed showering and ADLS as outlined above. Pt gathered dirty clothes and performed functional mobility to laundry room, carrying laundry basket without AD. He started laundry without difficulty, then went to therapy gym. OT tx with focus on increasing BUE strength and activity tolerance. Pt completed x10 mins on pulleys, then x15 mins on arm bike, moderate resistance (25 [place]). Pt did not require rest breaks during tasks, O2 saturation remaining 97-98% with activity. Pt performed functional mobility back to his room, transferring to recliner. Post tx, pt seated in recliner, call light in reach and all needs met. Education OT Patient Education: Correct positioning, Energy conservation, Exercise program, Modified ADL techniques, Progress toward Goal/Update tx plan, Purpose of tx/functional activities, Rehab process Teaching Recipient: Patient Teaching Methods: Discussion Response to Teaching: Verbalize Understanding OT Short Term Goals Short Term Goals Time Frame: Dec 10, 2020 Toileting hygiene: 5 Shower/bathe self: 5 Upper body dressin Lower body dressin Putting on/taking off footwear: 5 OT Material Stress Tester Goals Material Stress Tester Goals Time Frame: Dec 26, 2020 Eating (QC): 6 (met) Oral Hygiene (QC): 6 (met) Toileting Hygiene (QC): 6 (met) Shower/Bathe Self (QC): 6 (not met, set up) Upper Body Dressing (QC): 6 (met) Lower Body Dressing (QC): 6 (met) On/Off Footwear (QC): 6 (met) Additional Goals: 1-Demonstrate ADL Tasks, 2-Verbalize Understanding, 3-ImproveStrength/Trudy 1=Demonstrate adherence to instructed precautions during ADL tasks. 2=Patient will verbalize/demonstrate understanding of assistive devices/modifications for ADL. 3=Patient will improve strength/tolerance for activity to enable patient to perform ADL's. OT Education/Plan Problem List/Assessment Assessment: Decreased Activ Tolerance, Decreased UE Strength, Impaired I ADL's Discharge Recommendations Plan/Recommendations: Continue POC Treatment Plan/Plan of Care Patient would benefit from OT for education, treatment and training to promote independence in ADL's, mobility, safety and/or upper extremity function for ADL's. Plan of Care: ADL Retraining, Functional Mobility, Group Exercise/Act as Ind, UE Funct Exercise/Act Treatment Duration: Dec 26, 2020 Frequency: Modified Program (IRF) Estimated Hrs Per Day: 1 hour per day Rehab Potential: Good Time/GCodes Start Time: 09:30 Stop Time: 11:00 Total Time Billed (hr/min): 90 Billed Treatment Time 1, ADL 4 (60'), EX 2 (30') AYAH DIAS OT Dec 04, 2020 10:25
--- NOTE | 2020-12-04 10:45 | PM&R Progress Note ---
Subjective HPI/CC On Admission Date Seen by Provider: Dec 04, 2020 Time Seen by Provider: 10:45 Subjective/Events-last exam 12/04/2020: Pt doing really well Up AD-EVNA in room Capping trach Reasonable to discharge him home tomorrow Bowels moving okay No other issues 12/03/2020: Patient doing much better No oxygen provided during therapy but he did get 86% Bowels moved last night Pulmonary consult recommended capping the trach Chest x-ray reviewed No pain 12/02/2020: Pt doing really well Taking a shower HR remains tachycardic so Metoprolol 12.5 BID will be started Denies any other new issues Fianc at the bedside Review of Systems General: Fatigue Objective Exam Vital Signs Vital Signs Date Time Temp Pulse Resp B/P (MAP) Pulse Ox O2 Delivery O2 Flow Rate FiO2 12/04/20 20:51 Room Air 12/04/20 19:32 37.0 107 20 131/89 (103) 94 12/04/20 09:27 6.00 12/04/20 08:15 21 Capillary Refill : General Appearance: No Apparent Distress, WD/WN, Anxious, Chronically ill, Obese HEENT: PERRL/EOMI, Normal ENT Inspection, Pharynx Normal Neck: Full Range of Motion, Normal Inspection, Non Tender, Supple, Carotid Bruit Respiratory: Chest Non Tender, Lungs Clear, Normal Breath Sounds, No Accessory Muscle Use, No Respiratory Distress Cardiovascular: Regular Rate, Rhythm, No Edema, No Gallop, No JVD, No Murmur, Normal Peripheral Pulses Gastrointestinal: Normal Bowel Sounds, No Organomegaly, No Pulsatile Mass, Non Tender, Soft Back: Normal Inspection, No CVA Tenderness, No Vertebral Tenderness Extremity: Normal Capillary Refill, Normal Inspection, Normal Range of Motion, Non Tender, No Calf Tenderness, No Pedal Edema Neurologic/Psychiatric: Alert, Oriented x3, No Motor/Sensory Deficits, Normal Mood/Affect, Motor Weakness (Generalized) Skin: Normal Color, Warm/Dry Lymphatic: No Adenopathy Results/Procedures Lab Patient resulted labs reviewed. FIM Transfers Therapy Code Descriptions/Definitions Functional [place] Measure: 0=Not Assessed/NA 4=Minimal Assistance 1=Total Assistance 5=Supervision or Setup 2=Maximal Assistance 6=Modified [place] 3=Moderate Assistance 7=Complete IndependenceSCALE: Activities may be completed with or without assistive devices. 7-Sozagrnqae-ntmqgtw completes the activity by him/herself with no assistance from a helper. 5-Set-up or Clean-up Assistance-helper sets up or cleans up; patient completes activity. [place] assists only prior to or following the activity. 4-Supervision or Touching Assistance-helper provides verbal cues and/or touching/steadying and/or contact guard assistance as patient completes activity. Assistance may be provided throughout the activity or intermittently. 3-Partial/Moderate Assistance-helper does LESS THAN HALF the effort. [place] lifts, holds or supports trunk or limbs, but provides less than half the effort. 2-Substantial/Maximal Assistance-helper does MORE THAN HALF the effort. [place] lifts or holds trunk or limbs and provides more than half the effort. 3-Cfhrtbqcx-pfrfpe does ALL the effort. Patient does none of the effort to complete the activity. Or, the assistance of 2 or more helpers is required for the patient to complete the activity. If activity was not attempted, code reason: 7-Patient Refused. 9-Not Applicable-not attempted and the patient did not perform the activity before the current illness, exacerbation or injury. 10-Not Attempted due to Environmental Limitations-(lack of equipment, weather restraints, etc.). 88-Not Attempted due to Medical Conditions or Safety Concerns. Roll Left to Right (QC): 6 Sit to Lying (QC): 6 Sit to Stand (QC): 6 Chair/Chk-au-Ixcdk Xfer(QC): 5 Car Transfer (QC): 5 Gait Training Does the Patient Walk?: Yes Distance: 450' Walk 10 feet (QC): 5 Walk 50 ft with 2 Turns(QC): 5 Walk 150 ft (QC): 5 Walking 10ft/uneven surface-QC: 5 Gait Persons Needed: 1 Gait Assistive Device: Cane Single Point Wheelchair Training Does the Pt Use a Wheelchair?: No Distance: N/A Wheel 50 ft with 2 turns (QC): 9 Wheel 150 ft (QC): 9 Type of Wheelchair: N/A Stair Training #of Steps: 0 1 Step (curb) (QC): 88 4 Steps (QC): 88 12 Steps (QC): 8 Balance Picking up an Object (QC): 4 ADL-Treatment Eating (QC): 6 (IND) Oral Hygiene (QC): 6 (IND) Shower/Bathe Self (QC): 5 (set up assist. OT covered trach prior to shower.) Upper Body Dressing (QC): 6 (IND with pullover shirt) Lower Body Dressing (QC): 6 (IND donning/doffing pants) On/Off Footwear (QC): 6 (IND with donning/doffing gripper socks.) Toileting Hygiene (QC): 6 (IND, pt managed hygiene and clothing management) Toilet Transfer (QC): 6 (IND on/off toilet.) Assessment/Plan Assessment and Plan Assess & Plan/Chief Complaint Assessment: COVID-19 pneumonia syndrome with severe debility and muscle weakness Tracheostomy in place Obesity Anxiety Severe hypoxia Anemia hemoglobin of 10 Plan: Aggressive PT and OT Oxygen supplementation Trach care Monitor closely 12/02/2020: Continue supportive care Oxygen wean Improved status 12/03/2020: Appreciate pulmonary consult Trach Aggressive therapy 12/04/2020: Supportive care Discharge home tomorrow (1) COVID-19 Critical Care Critical Care: Critically Ill Patient MYRNA WASSERMAN DO Dec 04, 2020 10:45
--- NOTE | 2020-12-04 10:55 | Physical Therapy Daily Note ---
PT Daily Note-Current Subjective Pt sitting in recliner upon arrival, eating breakfast. Pt agrees to PT. Pain Location: No Pain Reported Mental Status Patient Orientation: Person, Place, Time, Situation No O2 used during tx. Transfers SCALE: Activities may be completed with or without assistive devices. 5-Makavobwaz-kecvfop completes the activity by him/herself with no assistance from a helper. 5-Set-up or Clean-up Assistance-helper sets up or cleans up; patient completes activity. [place] assists only prior to or following the activity. 4-Supervision or Touching Assistance-helper provides verbal cues and/or touching/steadying and/or contact guard assistance as patient completes activity. Assistance may be provided throughout the activity or intermittently. 3-Partial/Moderate Assistance-helper does LESS THAN HALF the effort. [place] lifts, holds or supports trunk or limbs, but provides less than half the effort. 2-Substantial/Maximal Assistance-helper does MORE THAN HALF the effort. [place] lifts or holds trunk or limbs and provides more than half the effort. 6-Qiusitkhv-cwxepo does ALL the effort. Patient does none of the effort to complete the activity. Or, the assistance of 2 or more helpers is required for the patient to complete the activity. If activity was not attempted, code reason: 7-Patient Refused. 9-Not Applicable-not attempted and the patient did not perform the activity before the current illness, exacerbation or injury. 10-Not Attempted due to Environmental Limitations-(lack of equipment, weather restraints, etc.). 88-Not Attempted due to Medical Conditions or Safety Concerns. Roll Left & Right (QC): 6 Sit to Lying (QC): 6 Lying to Sitting/Side of Bed(Q: 6 Sit to Stand (QC): 6 Chair/Yta-yr-Qdjdk Xfer(QC): 6 Toilet Transfer (QC): 6 Car Transfer (QC): 6 Weight Bearing Full Weight Bearing Full Weight Bearing Gait Training Does the Patient Walk?: Yes Distance: 450' x2, 450' Walk 10 feet (QC): 6 Walk 50 ft with 2 Turns(QC): 6 Walk 150 ft (QC): 6 Walking 10ft/uneven surface-QC: 6 Gait Persons Needed: 0 Gait Assistive Device: None Wheelchair Training Does the Pt Use a Wheelchair?: No Stair Training Stair Training: Handrails/: 2 handrails #of Steps: 4 1 Step (curb) (QC): 6 4 Steps (QC): 6 12 Steps (QC): 7 Stairs: Pattern: Step to Balance Picking up an Object (QC): 6 Exercises NuStep Minutes: 15 NuStep Workload: 6 Treatments 800-900: TF to standing and uses BR. Pt amb. in hallway, making 2 laps of floor with RB during each lap. Pt uses NuStep for 15m at WL 6. Pt wants to amb. again and makes another lap on floor before returning to room to rest in recliner. All needs met, call light in hand. O2 monitored during tx and no O2 was needed. [id number]: Pt completes QC scoring items listed above. Pt returns to room to rest in recliner with all needs met, call light in hand. Assessment Current Status: Excellent Progress Pt has improved with strength, activity tolerance and independence. Pt is now Ad patricia in room, Nursing notified. Pt is able to ambulate longer distance w/o AD as well as no O2 is needed. 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 Set Up Operator Goals PT Prison Goals Time Frame: Dec 23, 2020 Roll Left & Right (QC): 6 Sit to Lying (QC): 6 Lying-Sitting on Side/Bed(QC): 6 Sit to Stand (QC): 6 Chair/Nfg-wc-Kdoae Xfer(QC): 6 Toilet Transfer (QC): 6 Car Transfer (QC): 6 Does the Patient Walk: Yes Walk 10 feet (QC): 6 Walk 50ft with 2 Turns (QC): 6 Walk 150 ft (QC): 6 Walking 10ft on Uneven Surface: 6 1 Step (curb) (QC): 6 4 Steps (QC): 6 12 Steps (QC): 6 Picking up an Object (QC): 6 Does the Pt use WC or Scooter?: No Wheel 50 feet with 2 turns (QC: 9 Type: N/A Wheel 150 feet: 9 Type: N/A PT Plan Problem List Problem List: Activity Tolerance Treatment/Plan Treatment Plan: Continue Plan of Care Treatment Plan: Bed Mobility, Concurrent Therapy, Education, Functional Activity Trudy, Functional Strength, Group Therapy, Gait, Safety, Therapeutic Exercise, Transfers Treatment Duration: Jan 15, 2021 Frequency: At least 5 of 7 days/Wk (IRF) Estimated Hrs Per Day: 1.5 hours per day Patient and/or Family Agrees t: Yes Time/GCodes Time In: 800 Time Out: 900 Total Billed Treatment Time: 60 Total Billed Treatment 800-900: 1, GT x2 (30m), FA (15m) & EX (15m) [id number]: 1, FA x2 (30m) JESSICA FALL ASE MASTER MECHANIC Dec 04, 2020 10:55
[2020-12-04] MEDS ORDERED: MTP25TSR PO (11:47)
[2020-12-04] MEDS ORDERED: DIAZ10TA3 PO (11:47)
[2020-12-04] MEDS ORDERED: APIX5TAB PO (11:47)
[2020-12-04] MEDS ORDERED: RT-ALBUINH INH (11:47)
[2020-12-04] MEDS ORDERED: SERT-414 PO (11:47)
[2020-12-04] MEDS ORDERED: TRAZ-227 PO (11:47)
--- NOTE | 2020-12-04 11:48 | D/C HH Face to Face Order ---
D/C Face to Face Orders Reconcile Patient Problems Problems Reviewed?: Yes Instructions for Patient Home Health Patient Instructions/FollowUp: PCP 1 week Physician to follow Patient: Tipping Discharge Diet for Home: No Restrictions Patient Problems: COVID 19 PNA s/p ECMO Patient Data-Allergies,Ht & Wt Patient Allergies: Coded Allergies: No Known Drug Allergies (Unverified , 12/01/20) Home Health Need/Face to Face Date of Face to Face: Dec 04, 2020 Clinical Findings: Generalized weakness and fatigue, Instability, Muscle weakness, Shortness of breath, Unsteady gait I have seen Pt enyx-qo-itrw: Yes Discharged To: Home Diagnosis/Conditions: covid 19 Patient is Homebound due to: Marielle fall risk due to instabilty, Muscle weakness, Shortness of breath/distress Homebound Status Due to the above stated illness, injury or surgical procedure (medical condition or diagnosis) and associated clinical findings, the patient is homebound because of his/her inability to leave home except with aid of a supportive device and/or person AND leaving the home requires a considerable and taxing effort or is medically contraindicated. Pt req the following assistanc: Walker Home Health Nursing Orders Home Health Services Order: Nursing Services, Vamp Maker-Evaluate & Treat, Physical Therapy-Evaluate & Treat Certify Stmt I certify that this patient is under my care and that I, a nurse practitioner or a physician; a magistrate assistant working with me, had a face to face encounter that - meets the physician face to face encounter requirements with this patient as dated. MYRNA WASSERMAN DO Dec 04, 2020 11:48
--- NOTE | 2020-12-04 12:08 | Progress Note ---
HUMBLE IGLESIAS 12/04/20 1208: Progress Note 25yo M presents on 12/01 to inpatient rehab at [facility] to recover from COVID PNA s/p successful ECMO w/ tracheotomy. His goal was to return to prior level of functioning, work at [employer], and home with his fianc due in 2 weeks (5th child). After aggressive therapy with PT/OT/RT, he recovered remarkedly well and is able to walk. Metoprolol was given to control his tachycardia. Pt planned to be discharged tomorrow barring any concerns after PT/OT/RT evaluation. NAN WASSERMAN DO 12/04/203: Supervisory-Addendum Brief Verification & Attestation Participated in pt care: history, MDM, physical Personally performed: exam, history, MDM, supervision of care Care discussed with: Medical Student Procedures: n/a Results interpretation: Verified all documentation Verification and Attestation of Medical Student E/M Service A medical student performed and documented this service in my presence. I reviewed and verified all information documented by the medical student and made modifications to such information, when appropriate. I personally performed the physical exam and medical decision making. Nan Wasserman, Dec 04, 2020,21:13 HUMBLE IGLESIAS Dec 04, 2020 12:08 NAN WASSERMAN DO Dec 04, 2020 21:13
--- NOTE | 2020-12-04 17:36 | Pulmonary Progress Note ---
Subjective Date Seen by a Provider: Dec 04, 2020 Time Seen by a Provider: 17:15 Subjective/Events-last exam Feels much more comfortable with a capped cuffless trach. Capped since 1:30 PM approximately. Speaking easily. Exam unchanged with no distress. Recommend removing trach and dressing stoma. Discussed with pt. and RN Josie. To be discharged tomorrow. Will sign off. Please call if questions: [facility] . Sepsis Event Evaluation Sepsis Stage: Ruled Out Height, Weight, BMI Height: '" Weight: lbs. oz. kg; 35.00 BMI Method: Focused Exam Peripheral Pulses: 1+ Dorsalis Pedis (R), 1+ Left Dors-Pedis (L) Exam Exam Patient acknowledged, consented, and participated in this virtual visit which was conducted using real time audio/video Vital Signs Date Time Temp Pulse Resp B/P (MAP) Pulse Ox O2 Delivery O2 Flow Rate FiO2 12/04/20 09:27 Trach Collar 6.00 12/04/20 08:15 97 Trach Collar 6.00 21 12/04/20 08:00 36.4 115 22 123/82 (96) 98 Room Air 28.00 12/03/20 21:00 96 Trach Collar 0.00 35 12/03/20 20:37 97 Trach Collar 6.00 21 12/03/20 20:14 36.4 121 18 117/77 (90) 95 Trach Collar Height & Weight Height: '" Weight: lbs. oz. kg; 35.00 BMI Method: General Appearance: No Apparent Distress, WD/WN, Anxious, Chronically ill, Obese HEENT: PERRL/EOMI, Normal ENT Inspection, Pharynx Normal Neck: Full Range of Motion, Normal Inspection, Non Tender, Supple, Carotid Bruit Respiratory: Chest Non Tender, Lungs Clear, Normal Breath Sounds, No Accessory Muscle Use, No Respiratory Distress Cardiovascular: Regular Rate, Rhythm, No Edema, No Gallop, No JVD, No Murmur, Normal Peripheral Pulses Extremity: Normal Capillary Refill, Normal Inspection, Normal Range of Motion, Non Tender, No Calf Tenderness, No Pedal Edema Neurologic/Psychiatric: Alert, Oriented x3, No Motor/Sensory Deficits, Normal Mood/Affect, Motor Weakness (Generalized) Skin: Normal Color, Warm/Dry Lymphatic: No Adenopathy Assessment/Plan Assessment/Plan See free text. Critical Care: Critically Ill Patient Time spent on discussion(mins): 0 KENTON MILLER MD Dec 04, 2020 17:36
[2020-12-04 19:32] VITALS: BP 131/89
[2020-12-04] MEDS: DIAZEPAM 5 MG (VALIUM) TABLET PO SCH (22:30)
[2020-12-04] MEDS: traZODone 100 MG (DESYREL) TAB PO SCH (22:31)
[2020-12-05] MEDS ORDERED: SERT-414 PO (05:43)
[2020-12-05] MEDS ORDERED: ALBU2.5V4 INH (05:43)
[2020-12-05] MEDS ORDERED: APIX5TAB PO (05:43)
[2020-12-05] MEDS ORDERED: DIAZ5TAB49 PO (05:43)
[2020-12-05] MEDS ORDERED: MTP25TSR PO (05:43)
[2020-12-05] MEDS ORDERED: FURO-125 PO (05:43)
[2020-12-05] MEDS ORDERED: TRAZ-227 PO (05:43)
--- NOTE | 2020-12-05 05:44 | Discharge Summary ---
Diagnosis/Chief Complaint Date of Admission Dec 01, 2020 at 16:40 Date of Discharge Discharge Date: Dec 05, 2020 Discharge Diagnosis Assessment: COVID-19 pneumonia syndrome with severe debility and muscle weakness Tracheostomy in place Obesity Anxiety Severe hypoxia Anemia hemoglobin of 10 Discharge Summary Discharge Physical Examination Allergies: Coded Allergies: No Known Drug Allergies (Unverified , 12/01/20) Vitals & I&Os Vital Signs Date Time Temp Pulse Resp B/P (MAP) Pulse Ox O2 Delivery O2 Flow Rate FiO2 12/05/20 10:35 36.4 117 18 133/92 94 Room Air 6.00 12/04/20 08:15 21 General Appearance: Alert, Oriented X3, Cooperative Respiratory: Clear to Auscultation Cardiovascular: Regular Rate Neuro: Normal Gait, Normal Speech, Strength at 5/5 X4 Ext Psych/Mental Status: Mental Status NL Hospital Course Was the Problem List Reviewed?: Yes HARRIS,HUMBLE MS III 25yo M presents on 12/01 to inpatient rehab at [facility] to recover from COVID PNA s/p successful ECMO w/ tracheotomy. His goal was to return to prior level of functioning, work at [email or web address], and home with his fianc due in 2 weeks (5th child). After aggressive therapy with PT/OT/RT, he recovered remarkedly well and is able to walk. Metoprolol was given to control his tachycardia. Pt planned to be discharged tomorrow barring any concerns after PT/OT/RT evaluation. Labs (last 24 hrs) Laboratory Tests 12/02/20 06:25: White Blood Count 8.4, Red Blood Count 3.33L, Hemoglobin 10.0L, Hematocrit 32L, Mean Corpuscular Volume 97, Mean Corpuscular Hemoglobin 30, Mean Corpuscular Hemoglobin Concent 31L, Red Cell Distribution Width 17.3H, Platelet Count 410H, Mean Platelet Volume 10.3, Immature Granulocyte % (Auto) 0, Neutrophils (%) (Auto) 67, Lymphocytes (%) (Auto) 25, Monocytes (%) (Auto) 6, Eosinophils (%) (Auto) 1, Basophils (%) (Auto) 0, Neutrophils # (Auto) 5.6, Lymphocytes # (Auto) 2.1, Monocytes # (Auto) 0.5, Eosinophils # (Auto) 0.1, Basophils # (Auto) 0.0, Immature Granulocyte # (Auto) 0.0, Sodium Level 140, Potassium Level 4.0, Chloride Level 104, Carbon Dioxide Level 23, Anion Gap 13, Blood Urea Nitrogen 7, Creatinine 0.68, Estimat Glomerular Filtration Rate 142, BUN/Creatinine Ratio 10, Glucose Level 100, Calcium Level 9.3, Corrected Calcium 9.5, Total Bilirubin 0.4, Aspartate Amino Transf (AST/SGOT) 10, Alanine Aminotransferase (ALT/SGPT) 26, Alkaline Phosphatase 81, Total Protein 6.4, Albumin 3.7 Pending Labs Laboratory Tests 12/02/20 06:25: White Blood Count 8.4, Red Blood Count 3.33, Hemoglobin 10.0, Hematocrit 32, Mean Corpuscular Volume 97, Mean Corpuscular Hemoglobin 30, Mean Corpuscular Hemoglobin Concent 31, Red Cell Distribution Width 17.3, Platelet Count 410, Mean Platelet Volume 10.3, Immature Granulocyte % (Auto) 0, Neutrophils (%) (Auto) 67, Lymphocytes (%) (Auto) 25, Monocytes (%) (Auto) 6, Eosinophils (%) (Auto) 1, Basophils (%) (Auto) 0, Neutrophils # (Auto) 5.6, Lymphocytes # (Auto) 2.1, Monocytes # (Auto) 0.5, Eosinophils # (Auto) 0.1, Basophils # (Auto) 0.0, I mmature Granulocyte # (Auto) 0.0, Sodium Level 140, Potassium Level 4.0, Chloride Level 104, Carbon Dioxide Level 23, Anion Gap 13, Blood Urea Nitrogen 7, Creatinine 0.68, Estimat Glomerular Filtration Rate 142, BUN/Creatinine Ratio 10, Glucose Level 100, Calcium Level 9.3, Corrected Calcium 9.5, Total Bilirubin 0.4, Aspartate Amino Transf (AST/SGOT) 10, Alanine Aminotransferase (ALT/SGPT) 26, Alkaline Phosphatase 81, Total Protein 6.4, Albumin 3.7 Discharge Home Medications: Active Scripts Active Lasix (Furosemide) 20 Mg Tablet 20 Mg PO Q48H Diazepam 5 Mg Tablet 10 Mg PO HS Trazodone HCl 100 Mg Tablet 100 Mg PO HS Sertraline HCl 100 Mg Tablet 100 Mg PO DAILY Metoprolol Succinate 25 Mg Tab.er.24h 25 Mg PO DAILY Eliquis (Apixaban) 5 Mg Tablet 5 Mg PO BID Albuterol Sulfate 2.5 Mg/3 Ml Vial.neb 2 Mg INH Q4H PRN Instructions to patient/family Please see electronic discharge instructions given to patient. Diagnosis/Problems Diagnosis/Problems (1) COVID-19 MYRNA WASSERMAN DO Dec 05, 2020 05:44
[2020-12-05] MEDS ORDERED: FUROSEMIDE 20 MG (LASIX) TAB PO ONE (05:45)
[2020-12-05 07:39] VITALS: BP 133/92
[2020-12-05] MEDS: DOCUSATE SODIUM 100 MG (COLACE) CAP PO SCH (08:55)
[2020-12-05] MEDS: SENNA W/DOCUSATE (SENOKOT S) TABLET PO SCH (08:55)
[2020-12-05] MEDS: APIXABAN 5 MG (ELIQUIS) TABLET PO SCH (08:55)
[2020-12-05] MEDS: SERTRALINE 100 MG (ZOLOFT) TAB PO SCH (08:55)
[2020-12-05] MEDS: meTOprolol TARTRATE 25 MG (LOPRESSOR) TABLET PO SCH (08:55)
[2020-12-05] MEDS: polyethylene glycoL POWDER 17 GM (MIRALAX) PACK PO SCH (08:55)
[2020-12-05 10:35] VITALS: BP 133/92
--- NOTE | 2020-12-05 13:15 | Therapy Team Discharge Summary ---
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 Upon evaluation patient performed bed mobility and supine <-> sit with setup, sit <-> stand and transfers with CGA/SBA, car transfer with CGA/SBA, ambulated 40' with a rolling walker with CGA (including 10' over an uneven surface), and could meat pickler an object from the floor with CGA. Patient has been performing bed mobility and transfer training, balance and endurance training, functional strengthening, st air training, gait training, and education. 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 Now, patient performs bed mobility and transfers with independence, car transfer independent, ambulates 450' without an assistive device with independence (including 50' with at least 2 turns of 90 degrees and 10' over an uneven surface), can meat pickler an object from the floor with independence, and can go up and down 4 steps using 2 handrails with independence. Patient has been discharged from this facility and will be discharged from PT at this time. Occupational Therapy Decreased Activ Tolerance, Decreased UE Strength, Impaired I ADL's PT Litigation Docket Manager Goals Litigation Docket Manager Goals PT Litigation Docket Manager Goals Time Frame: Dec 23, 2020 Roll Left to Right (QC): 6 Sit to Lying (QC): 6 Lying-Sitting on Side/Bed(QC): 6 Sit to Stand (QC): 6 Chair/Uun-qq-Thiix Xfer(QC): 6 Car Transfer (QC): 6 Does the Patient Walk: Yes Walk 10 feet (QC): 6 Walk 10ft-Uneven Surface(QC): 6 Walk 50ft with 2 Turns (QC): 6 Walk 150 ft (QC): 6 Does the Pt use WC or Scooter?: No Wheel 50 feet with 2 turns (QC: 9 1 Step (curb) (QC): 6 4 Steps (QC): 6 12 Steps (QC): 6 Picking up an Object (QC): 6 OT Custodial Goals Litigation Docket Manager Goals Time Frame: Dec 26, 2020 Eating (QC): 6 (met) Oral Hygiene (QC): 6 (met) Shower/Bathe Self (QC): 6 (not met, set up) Upper Body Dressing (QC): 6 (met) Lower Body Dressing (QC): 6 (met) On/Off Footwear (QC): 6 (met) Toileting(FIM): 6 Toileting Hygiene (QC): 6 (met) Toilet/Commode Transfer (QC): 6 Additional Goals: 1-Demonstrate ADL Tasks, 2-Verbalize Understanding, 3- ImproveStrength/Trudy 1=Demonstrate adherence to instructed precautions during ADL tasks. 2=Patient will verbalize/demonstrate understanding of assistive devices/modifications for ADL. 3=Patient will improve strength/tolerance for activity to enable patient to perform ADL's. KOMAL CABRERA PT Dec 05, 2020 13:15
--- NOTE | 2020-12-05 14:30 | Therapy Team Discharge Summary ---
Therapy Discharge Summary Discharge Recommendations Date of Discharge Dec 05, 2020 at 10:30 Occupational Therapy Pt admitted to ARU with critical illness myopathy. 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 Upon initial evaluation, pt required set up assistance with eating, SBA oral care and showering, set up upper body dressing, SBA lower body dressing, footwear and toileting. OT tx focused on increasing BUE strength and activity tolerance, and increasing safety and independence with ADLs and functional mobility. At discharge, pt required set up assistance with showering, and was independent with all ADLs. Pt made good progress towards goals, meeting IND level with all goals except showering. OT recommendations include shower chair vs bath bench. Pt discharged from facility, d/c from OT. Decreased Activ Tolerance, Decreased UE Strength, Impaired I ADL's PT Telecommunications Officer Goals Senior Care Goals PT Senior Care Goals Time Frame: Dec 23, 2020 Roll Left to Right (QC): 6 Sit to Lying (QC): 6 Lying-Sitting on Side/Bed(QC): 6 Sit to Stand (QC): 6 Chair/Efe-fj-Crjda Xfer(QC): 6 Car Transfer (QC): 6 Does the Patient Walk: Yes Walk 10 feet (QC): 6 Walk 10ft-Uneven Surface(QC): 6 Walk 50ft with 2 Turns (QC): 6 Walk 150 ft (QC): 6 Does the Pt use WC or Scooter?: No Wheel 50 feet with 2 turns (QC: 9 1 Step (curb) (QC): 6 4 Steps (QC): 6 12 Steps (QC): 6 Picking up an Object (QC): 6 OT Senior Care Goals Telecommunications Officer Goals Time Frame: Dec 26, 2020 Eating (QC): 6 (met) Oral Hygiene (QC): 6 (met) Shower/Bathe Self (QC): 6 (not met, set up) Upper Body Dressing (QC): 6 (met) Lower Body Dressing (QC): 6 (met) On/Off Footwear (QC): 6 (met) Toileting(FIM): 6 Toileting Hygiene (QC): 6 (met) Toilet/Commode Transfer (QC): 6 Additional Goals: 1-Demonstrate ADL Tasks, 2-Verbalize Understanding, 3- ImproveStrength/Trudy 1=Demonstrate adherence to instructed precautions during ADL tasks. 2=Patient will verbalize/demonstrate understanding of assistive devices/modifications for ADL. 3=Patient will improve strength/tolerance for activity to enable patient to perform ADL's. AYAH DIAS OT Dec 05, 2020 14:30
== END 2020-12-05 10:30 | disposition home health service (06) | DRG 92 ==
LOC: EDBD 12-01 16:40
PROVIDERS: ADMIT Internal Medicine; ATTEND Internal Medicine
DX: G72.81 Critical illness myopathy (principal); I82.401 Acute embolism and thrombosis of unspecified deep veins of right lower extremity; B94.8 Sequelae of other specified infectious and parasitic diseases; R09.02 Hypoxemia; F41.9 Anxiety disorder, unspecified; D64.9 Anemia, unspecified; G47.00 Insomnia, unspecified; D69.6 Thrombocytopenia, unspecified; E66.01 Morbid (severe) obesity due to excess calories; R00.0 Tachycardia, unspecified; K21.9 Gastro-esophageal reflux disease without esophagitis; F32.9 Major depressive disorder, single episode, unspecified; Z68.36 Body mass index [BMI] 36.0-36.9, adult; Z93.0 Tracheostomy status; Z79.01 Long term (current) use of anticoagulants
CPT/HCPCS: 36415; 71045; 80053; 85025; 94760